=== PATIENT | male | born 1950 | race Caucasian/White ===

== ENCOUNTER → 2019-12-03 09:39 | Outpatient (BNVA) | payer MEDICARE, OTHER, SELFPAY | PROVIDERS: Family Provider Nurse Practitioner Family; PCP Nurse Practitioner Family; Visit Provider Nurse Practitioner | DX: G89.29 Other chronic pain (principal); M51.17 Intervertebral disc disorders with radiculopathy, lumbosacral region; M43.24 Fusion of spine, thoracic region; M48.04 Spinal stenosis, thoracic region; M96.1 Postlaminectomy syndrome, not elsewhere classified; G56.03 Carpal tunnel syndrome, bilateral upper limbs; Z79.891 Long term (current) use of opiate analgesic | CPT/HCPCS: 99214 ==

== ENCOUNTER → 2020-01-22 14:11 | Outpatient (BNVA) | payer MEDICARE, OTHER, SELFPAY | PROVIDERS: Family Provider Nurse Practitioner Family; PCP Nurse Practitioner Family; Visit Provider Nurse Practitioner Family | DX: M25.521 Pain in right elbow (principal); M25.421 Effusion, right elbow | CPT/HCPCS: 73080 ==

== ENCOUNTER 2020-01-30 12:28 | Outpatient (CLI) | payer MEDICARE, OTHER, SELFPAY ==
--- NOTE | 2020-01-30 12:41 | XR_ITS ---
WS: [id number] XR lumbar spine f/e only [id number] REASON FOR EXAM: back pain FINDINGS: Lateral views of the lumbar spine showed posterior instrumentation [id number]-L5-S1 extends d own into the sacroiliac joints and the sacrum. At the L1-2 level there is degenerate disc changes with mild retrolisthesis. A mild compression defor mity of L1 is seen. Flexion-extension views show no motion are limited motion flexion and extension. XR/XR lumbar spine f/e only [id number] IMPRESSION: Limited flexion-extension. Fusion L2 through the sacrum. Posteriorly Degenerated disc changes and retrolisthesis with a complete mild compression ch anges at L1.
== END 2020-01-30 12:29 | disposition home or self-care (01) ==
LOC: RAD 12:36
PROVIDERS: Family Provider Nurse Practitioner Family; PCP Nurse Practitioner Family; Visit Provider Nurse Practitioner Family
DX: M51.36 Other intervertebral disc degeneration, lumbar region (principal)
CPT/HCPCS: 72120

== ENCOUNTER → 2020-02-07 13:00 | Outpatient (BNVA) | payer MEDICARE, OTHER, SELFPAY | PROVIDERS: Family Provider Nurse Practitioner Family; PCP Nurse Practitioner Family; Visit Provider Anesthesiology | DX: G89.29 Other chronic pain (principal); M48.04 Spinal stenosis, thoracic region; M43.24 Fusion of spine, thoracic region; M96.1 Postlaminectomy syndrome, not elsewhere classified; M54.42 Lumbago with sciatica, left side; Z79.891 Long term (current) use of opiate analgesic | CPT/HCPCS: 99214 ==

== ENCOUNTER 2020-02-14 15:05 | Outpatient (CLI) | payer MEDICARE, OTHER, SELFPAY ==
--- NOTE | 2020-02-14 15:30 | CT_ITS ---
WS: [id number] CT of the lumbar spine, additional two-dimensional coronal and sagittal imaging was obtained. 02/14/20 Clinical Data: Low back pain, injury Comparison: CT lumbar spine, 07/23/2019. DLP: 2035.[address] scans at [facility] use at least one of these dose optimization techniques: automat ed exposure control; mA and/or kV adjustment per patient size (includes targeted exams where dose is matched to clinical indication); or iterative reconstruction. Findings: There is been no change from the previous study. The patient has bilateral pedicle screws a t L2, L3, L5 and oblique screws from S1 obliquely into the both gerhard. There is a unilateral pedicle s crew on the left at L4. These pedicle screws are connected with rods. No change is seen. There is deg enerative disc disease at L1-L2, L2-L3 and L3-L4. There is complete fusion at L4-L5. L3-L4 and L4-L5 laminectomies have been performed. Facet joint arthritis is present from L2-3 through L5-S1. No compr ession fractures are seen. There is posterior osteoarthritic spurring at L1-L2 unchanged. Left renal cyst is again noted. T12-L1: No canal stenosis, disc bulge or foraminal narrowing is seen. L1-L2: There is minimal central canal stenosis with bilateral foraminal narrowing. L2-L3: There is minimal disc bulging with mild central canal stenosis but no foraminal stenosis. L3-L4: The minimal anterolisthesis of L3 on L4 is noted. There is facet joint arthritis but no spinal canal or foraminal narrowing. L4-L5: Bilateral foraminal stenosis but no canal stenosis. L5-S1: Right foraminal stenosis but no left foraminal stenosis. CT/CT lumbar spine wo con* [id number] Impression: 1. Posterior lumbar fusion unchanged. 2. Multiple levels of canal and foraminal stenosis unchanged. 3. L3-4 and L4-5 laminectomies unchanged.
== END 2020-02-14 15:06 | disposition home or self-care (01) ==
LOC: RADWPI 15:10
PROVIDERS: Family Provider Nurse Practitioner Family; PCP Nurse Practitioner Family; Visit Provider Licensed Practical Nurse
DX: Z98.1 Arthrodesis status (principal); M54.5 Low back pain; M48.061 Spinal stenosis, lumbar region without neurogenic claudication; M96.1 Postlaminectomy syndrome, not elsewhere classified
CPT/HCPCS: 72131

== ENCOUNTER → 2020-03-05 09:45 | Outpatient (BNVA) | payer MEDICARE, OTHER, SELFPAY | PROVIDERS: Family Provider Nurse Practitioner Family; PCP Nurse Practitioner Family; Referring Provider Specialist; Visit Provider Psychiatry & Neurology Neurology | DX: G89.29 Other chronic pain (principal); M54.41 Lumbago with sciatica, right side; M54.42 Lumbago with sciatica, left side; M48.04 Spinal stenosis, thoracic region; M43.24 Fusion of spine, thoracic region; M96.1 Postlaminectomy syndrome, not elsewhere classified; Z79.891 Long term (current) use of opiate analgesic | CPT/HCPCS: 95885; 95910; 99214 ==

== ENCOUNTER → 2020-03-31 12:15 | Outpatient (BNVA) | payer MEDICARE, OTHER, SELFPAY | PROVIDERS: Family Provider Nurse Practitioner Family; PCP Nurse Practitioner Family; Visit Provider Nurse Practitioner Family | DX: I10 Essential (primary) hypertension (principal); E78.2 Mixed hyperlipidemia; R53.83 Other fatigue; Z79.899 Other long term (current) drug therapy; E55.9 Vitamin D deficiency, unspecified; Z12.5 Encounter for screening for malignant neoplasm of prostate | CPT/HCPCS: 80053; 80061; 81001; 82306; 83036; 84443; 85025; G0103 ==

== ENCOUNTER → 2020-04-06 10:22 | Outpatient (BNVA) | payer MEDICARE, OTHER, SELFPAY | PROVIDERS: Family Provider Nurse Practitioner Family; PCP Nurse Practitioner Family; Visit Provider Nurse Practitioner Family | DX: N39.9 Disorder of urinary system, unspecified (principal) | CPT/HCPCS: 81001 ==

== ENCOUNTER 2020-04-09 11:56 | Day surgery (SDC) | payer MEDICARE, OTHER, SELFPAY ==
[2020-04-09 12:13] VITALS: BP 139/93; PULSE 66; RESP 18; TEMP 36.4; O2SAT 96
[2020-04-09 12:37] VITALS: BMI 31.1
--- NOTE | 2020-04-09 12:50 | W.PM.OPSUD ---
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
--- NOTE | 2020-04-09 13:14 | P.ANESASSM_ITS ---
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 Proposed Procedure: Operation Date: 04/09/20 13:40 Proposed Procedures p Open Left Median Nerve Release 39088 G56.03(Left) - Craig Thomas MD Last intake: Intake Last Liquid Date 04/09/20 Last Liquid Time 06:00 Last Solid Date 04/08/20 Last Solid Time 09:30 Social: Social History: No alcohol and No tobacco Exam: Pre-Anes Outpt Exam: alert, oriented x 3, clear to auscultation bilaterally and regular rate & rhythm Airway: Submandibular: WNL Cervical ROM: WNL MP: 2 Dentition: Other (very poor) History/ROS: No significant history except as noted Pulmonary: Pulmonary: Sleep apnea CV/HEM: CV/HEM: HTN : : None reported Hepatic: Hepatic: None reported GI: GI: GERD Metabolic: Metabolic: None reported Musc/skel: Musc/skel: Lower Back Pain and OA/DJD Neuropsych: Neuropsych: Anxiety, Depression and Neuropathy Anesthetic Plan: ASA status: 3 Anesthesia: Anesthesia Evaluation and General Risk of > 500 ml blood loss (7ml/kg in children): No PFSH Anesthesia PFSH: Medical History ADHD (attention deficit hyperactivity disorder), combined type Auditory processing disorder Bilateral carpal tunnel syndrome 07/17/2019 NCS BUE Chronic bilateral low back pain with bilateral sciatica Chronic narcotic use Chronic thoracic spine pain Encounter for long-term opiate analgesic use Essential hypertension Failed back syndrome, lumbosacral Fusion of spine, thoracic region Low back pain Mixed hyperlipidemia Obstructive sleep apnea on CPAP Postlaminectomy syndrome of lumbosacral region Pseudarthrosis following spinal fusion PTSD (post-traumatic stress disorder) Thoracic spinal stenosis Unspecified dementia without behavioral disturbance Vitamin D deficiency Surgical History History of facial surgery S/P knee surgery S/P spinal surgery 2009 Dr. Jose Roach [place], [place]: Multilevel cervical laminectomy/fusion/fixation. Dr. Jose Roach [place], [place] Patient reports C2-C3, C3-C4, C4-C5 Laminectomy/fusion/fixation 2013 Dr. Jose Mejía [place], [place] T1-T4 laminectomy/fusion/fixation 2015 Dr. Jose Roach [place], [place]. L3-L4, L4-L5, L5-S1, S1-S2 posterior laminectomy/fusion/fixation and bilateral iliac bones 06/06/19 Dr Thomas irrigation and debridement of posterior thoracic surgical wound dehiscence related to a previous thoracic spinal cord stimulator placement 07/24/2019 Dr. Gricelda Thomas: Thoracic laminotomies with removal of intraspinal, epidural paddle electrode arrays. Removal of subcutaneous programmable pulse generator. Back Surgery Attributes: Inpatient, Post-op complications, Bilateral. Comments: 2013: L3-4 and maybe one other. 2016: L2-3, L3-4, L4-5, and L5-S1 and bilateral sacroiliac fusion. Cervical fusion revision, Dr Chidi Roach, [place], [place], 2010 Dr Thomas 01/17/19 Thoracic laminotomy with placement of intraspinal, epidural paddle electrode arrays and placement of subcutaneous programmable pulse generator. Neck Surgery *Promoted* Attributes: Date: 2009, Inpatient, Post-op complications, Bilateral. Comments: 2009: C2-3, C3-4 and C4-5 discectomy and fusion 2011: revision of fusion due to failure at C3-4 and C4-5 2012: Fusion from C2 to T4. SCS Removal 2019 Spinal Cord Stimulator Trial -Dr. Clemons 11/02/18 11/02/2018 - 11/06/2018 100% symptom benefit Status post laminectomy with spinal fusion Family History Mother Diabetes Social History Smoking and tobacco status: never smoked Alcohol intake: former Household members: significant other Marital status: Single Current occupational status: retired History of recent travel: No Data Anesthesia Cardiac Studies: No Data to Display
--- NOTE | 2020-04-09 13:27 | P.OP_ITS ---
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 Surgeon: Craig Thomas Estimated blood loss (mL): 5 Complications: None Post-op Plan: Home per Ambulatory Surgery protocol. 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
[2020-04-09] MEDS: sodium chloride 0.9% 1,000 ML 30 ML IV (13:30)
[2020-04-09] MEDS: neomycin-poly-bacitracin oint 28 gm 1 APPLIC TOPICAL (14:08)
[2020-04-09 14:33] VITALS: BP 142/93; PULSE 67; RESP 18; TEMP 36.1; O2SAT 98
[2020-04-09 15:15] VITALS: BP 170/94; PULSE 56; RESP 18; O2SAT 99
[2020-04-09 15:28] VITALS: BP 117/93; PULSE 58; RESP 18; O2SAT 99
--- NOTE | 2020-04-09 18:16 | PM.OP ---
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 Post-op diagnosis: same Procedure Done: Open release of the median nerve at the left wrist. Implants: None. Specimens removed/disposition: None. Pathology: none sent Surgeon: Craig Thomas Anesthesia: MAC Estimated blood loss (mL): 5 IV fluids (mL): 100 Complications: None. Condition: stable Disposition: same day Brief History: The patient is a 69-year-old male with symptomatic, electrodiagnostically confirmed, severe median nerve entrapment at the wrists. Conservative management, including wrist splinting, failed to provide adequate lasting symptom relief. After review of the diagnostic and treatment options with the risks/potential benefits/rationale for each, the patient requested to proceed with open release of the median nerve at the left wrist. Procedure: After routine preoperative evaluation and informed consent were obtained, the patient was taken to the Operating Room and positioned supine on the operating table. Anesthesia personnel monitored the patient, and maintained intravenous sedation. The left upper extremity was extended on an arm board. The proposed skin incision was marked with a sterile skin marker, beginning near the wrist crease and extending distally along a palmar crease to the base of the thumb. The left upper extremity was scrubbed with Betadine and prepped with DuraPrep from the fingertips to the axilla. A sterile stockinette was placed over the left upper extremity. The patient was draped with sterile towels and drapes. An opening was fashioned in the sterile stockinette over the palmar aspect of the left hand. Ioban surgical barrier was applied. The proposed incision site was infiltrated with 1% Xylocaine with Epinephrine. A skin incision was made with a sharp knife and carried down into the subcutaneous tissues. The markedly thickened transverse carpal ligament was identified and divided over the course of the median nerve in the palm. The nerve was directly visualized as the ligament was divided. Decompression was extended distally until the palmar fat pad was encountered. Proximally, the decompression was extended above the wrist crease utilizing fine Metzenbaum scissors. Decompression was verified to be adequate for a distance of greater than 2 centimeters proximal to the wrist crease. Focal epineural adhesions were identified distally. Limited epineurolysis was performed at that site. At the completion of the decompression, there was no evidence of residual impingement or tethering of the median nerve at the surgical site. The wound was copiously irrigated with sterile saline and antibiotic irrigation. Hemostasis was ensured with the bipolar electrocautery. Wound closure was performed as a single layer utilizing 4-0 Nylon in a simple interrupted fashion. Antibiotic ointment was placed along the incision line. A bulky hand dressing was fashioned utilizing Kerlix fluffs, a Kerlix wrap, and an BARBRA/elastic bandage. The patient was transferred onto the transport cart and returned to the Ambulatory Surgery Area for discharge home, as per the Ambulatory Surgery protocol. The patient tolerated the procedure well. All sponge, needle and instrument counts were correct at the completion of the procedure.
== END 2020-04-09 16:15 | disposition home or self-care (01) ==
PROVIDERS: PCP Nurse Practitioner Family; Visit Provider Specialist
PROC: (CPT 64721; principal; 2020-04-09 13:30)
DX: G56.02 Carpal tunnel syndrome, left upper limb (principal); I10 Essential (primary) hypertension; K21.9 Gastro-esophageal reflux disease without esophagitis; M19.90 Unspecified osteoarthritis, unspecified site; G47.33 Obstructive sleep apnea (adult) (pediatric); Z98.1 Arthrodesis status; Z87.891 Personal history of nicotine dependence; E78.2 Mixed hyperlipidemia; F03.90 Unspecified dementia, unspecified severity, without behavioral disturbance, psychotic disturbance, mood disturbance, and anxiety
CPT/HCPCS: 64721; 12345; J0690; J2001; J2704; J3010; J3490; J7030

== ENCOUNTER → 2020-05-01 09:50 | Outpatient (BNVA) | payer MEDICARE, OTHER, SELFPAY | PROVIDERS: PCP Nurse Practitioner Family; Visit Provider Anesthesiology | DX: G89.29 Other chronic pain (principal); M54.41 Lumbago with sciatica, right side; M54.42 Lumbago with sciatica, left side; M48.04 Spinal stenosis, thoracic region; M43.24 Fusion of spine, thoracic region; M96.1 Postlaminectomy syndrome, not elsewhere classified; Z79.891 Long term (current) use of opiate analgesic | CPT/HCPCS: 99214 ==

== ENCOUNTER → 2020-07-09 16:12 | Outpatient (BNVA) | payer MEDICARE, OTHER, SELFPAY | PROVIDERS: PCP Nurse Practitioner Family; Visit Provider Nurse Practitioner Family | DX: E55.9 Vitamin D deficiency, unspecified (principal); I10 Essential (primary) hypertension; E78.2 Mixed hyperlipidemia; Z79.899 Other long term (current) drug therapy | CPT/HCPCS: 36415; 80053; 80061; 81003; 82306; 83036; 84443; 85025 ==

== ENCOUNTER → 2020-07-14 11:35 | Outpatient (BNVA) | payer MEDICARE, OTHER, SELFPAY | PROVIDERS: PCP Nurse Practitioner Family; Visit Provider Nurse Practitioner Family | DX: I10 Essential (primary) hypertension (principal) | CPT/HCPCS: 80053; 81003 ==

== ENCOUNTER 2020-08-05 08:44 | Outpatient (CLI) | payer MEDICARE, OTHER, SELFPAY ==
[2020-08-05 08:56] VITALS: BMI 32.6
--- NOTE | 2020-08-05 08:57 | ECG_ITS ---
[facility] Test Date: 2020-08-05 Pat Name: Billy Bishop Department: Room: Gender: Male Manager Of Procurement: : 1950 Requested By: Nata Sloan Order Number: [id number] Alcala MD: Nata Sloan M.D. Interpretive Statements NAME OF STUDY: EXERCISE SESTAMIBI STRESS TEST INDICATION: Chest Pressure, fatigue Baseline blood pressure of 161/88 mm Hg, heart rate 67 beats per minute and oxygen saturation 96%. EKG showed normal sinus rhythm, normal axis with with possible old septal infarct. The patient exercised for 6 minutes on a standard Tomer protocol. Patient attained a maximum heart rate of 133 beats per minute(88 % of the maximum predicted heart rate) with a blood pressure at the peak exercise of 153/91 mm Hg. The EKG at the peak exercise revealed sinus tachycardia with no significant ST-T wave changes. Patient did not have any significant arrhythmis with the exercise. This study was terminated due to chest pain and exertional fatigue. During the recovery phase, there were no new changes. During recovery patients blood pressure reji to 244/115 mmHg. Blood pressure at the end of the recovery phase was 152/97 mm Hg with a heart rate of 77 beats per minute and oxygen saturation 97%. Isolated PVCs noted in recovery. CONCLUSION: 1. Normal EKG response to treadmill exercise 2. No exercise-induced chest pain or cardiac arrhythmia 3. Fair exercise tolerance, attained a maximum of 7 METs. Maximum VO2 of 24.5 mL/kg/min. 4. Baseline hypertension with hypertensive response to exercise. 5. Perfusion scan will be documented separately. Results to RICK Davis Electronically Signed On 08-06-2020 12:52:47 CDT by Nata Sloan M.D. [id number]
--- NOTE | 2020-08-05 08:59 | NMCV_ITS ---
NM sheila perf SPECT r/s* [id number] Billy Bishop Age: 70 Gender: M : 1950 Exam Date: 08/05/2020 10:12 Ordering Phys: Nata Sloan MD ([email or web address]) Technologist: ELVA Nolasco Exam Location: [facility] Indications: Chest pain STRESS TEST Please [facility] IMAGE PROTOCOL Rest/Stress 1 Exercise Day Radiopharmaceutical Dose (mCi) Administration Site Administered by Rest: Tc-99m 10.7 IV ELVA Nolasco Sestamibi Stress:Tc-99m 32.3 IV ELVA Nolasco Sestamimauro Rest: 05-Aug-2020 60 Discovery 630 Stress: 05-Aug-2020 45 Discovery 630 Radiopharmaceutical was injected at 85 % maximum heart rate. Images obtained in supine and prone position. SPECT RESULTS Technical Quality: Good Raw Data Analysis: Normal Image Corrections: Patient motion artifact - motion correction applied to prone images. Summed Stress Score: 1 Summed Rest Score: 7 Summed Difference Score: 0 PERFUSION FINDINGS Medium sized perfusion abnormality of mild to moderate severity of entire inferior and mid to apical inferolateral wall on rest images with improved tracer uptake on stress images. This is suggestive of attenuation artifact. FUNCTIONAL RESULTS (calculated via Gated SPECT) Stress Image LV EF (%): 52 Stress EDV (mL):89 TID: 0.85 Stress ESV (mL):43 FUNCTIONAL FINDINGS: The left ventricle is normal in size. Transient Ischemia Dilatation of 0.85. There is normal left ventricular systolic function. The left ventricular ejection fraction is normal with a value of 52%. There is normal left ventricular wall thickening. Normal end-diastolic and end-systolic volumes. IMPRESSIONS 1. Medium sized paradoxical perfusion abnormality of entire inferior and mid to apical inferolateral wall is suggestive of attenuation artifact. 2. Overall left ventricular systolic function is low normal without regional wall motion abnormalities. 3. The left ventricular ejection fraction is normal with a value of 52%. 4. No coronary ischemia based on the study Nata Sloan MD (Electronically Signed) Final Date: 06 August 2020 13:00 S
[2020-08-05 11:19] VITALS: BP 152/97; PULSE 78
== END 2020-08-05 08:45 | disposition home or self-care (01) ==
LOC: CDL 08:45
PROVIDERS: PCP Nurse Practitioner Family; Visit Provider Internal Medicine Cardiovascular Disease
DX: R07.9 Chest pain, unspecified (principal)
CPT/HCPCS: 78452; 93017; A9500

== ENCOUNTER → 2020-08-31 13:40 | Outpatient (BNVA) | payer MEDICARE, OTHER, SELFPAY | PROVIDERS: PCP Nurse Practitioner Family; Visit Provider Registered Nurse | DX: Z03.89 Encounter for observation for other suspected diseases and conditions ruled out (principal) | CPT/HCPCS: 82607; 84403 ==

== ENCOUNTER → 2020-11-13 12:00 | Outpatient (BNVA) | payer MEDICARE, OTHER, SELFPAY | PROVIDERS: PCP Nurse Practitioner Family; Visit Provider Nurse Practitioner Family | DX: M19.011 Primary osteoarthritis, right shoulder (principal); M17.12 Unilateral primary osteoarthritis, left knee; R25.2 Cramp and spasm | CPT/HCPCS: 73030; 73562 ==

== ENCOUNTER → 2021-01-25 11:44 | Outpatient (BNVA) | payer MEDICARE, SELFPAY | PROVIDERS: PCP Nurse Practitioner Family; Visit Provider Specialist | DX: M19.011 Primary osteoarthritis, right shoulder (principal) | CPT/HCPCS: 73030 ==

== ENCOUNTER → 2021-02-11 10:45 | Outpatient (BNVA) | payer MEDICARE, SELFPAY | PROVIDERS: PCP Nurse Practitioner Family; Visit Provider Specialist | DX: M19.011 Primary osteoarthritis, right shoulder (principal); M17.12 Unilateral primary osteoarthritis, left knee | CPT/HCPCS: 73560; 73565 ==

== ENCOUNTER 2021-03-03 10:27 | Outpatient (CLI) | payer MEDICARE, SELFPAY ==
--- NOTE | 2021-03-03 11:00 | USCV_ITS ---
Billy Bishop Age: 70 Gender: M : 1950 Exam Date: 03/03/2021 10:49 Ordering Phys: Ferdinand Middleton MD Technologist: Javad Faye [place] [facility] [place]: DIZZINESS, GIDDINESS Risk Factors: Previous Vascular Surgery: Right Brachial BP: / Left Brachial BP: / Right Left Velocity (cm/s) Spectral Plaque Velocity (cm/s) Spectral Plaque Syst/Diast Broadening Syst/Diast Broadening 87.00/ 17.90 Prox CCA 85.40 / 19.40 75.40/ 22.50 Mid CCA 77.70 / 14.80 49.70/ 10.90 Distal CCA 66.00 / 17.10 49.70/ 17.60 Prox ICA 40.60 / 16.30 51.80/ 22.40 Mid ICA 48.10 / 19.00 45.30/ 18.10 Distal ICA 58.20 / 23.70 69.10 ECA 75.20 0.69 ICA/CCA 0.75 Antegrade Vertebral Antegrade 85.40/ 24.90 cm/s 40.40/ 12.40 cm/s Tri Subclavian Tri 82.30 105.8 0 CONCLUSIONS Right ICA stenosis <50%. Mild atheromatous plaque right carotid bulb/ICA. Left ICA stenosis <50%. Mild atheromatous plaque left carotid bulb/ICA. Normal antegrade Doppler flow noted in the right vertebral artery. Normal antegrade Doppler flow noted in the left vertebral artery. Rakesh Novak MD (Electronically Signed) Final Date: 04 March 2021 10:23 S
--- NOTE | 2021-03-03 13:00 | MR_ITS ---
WS: [id number] MRI HEAD WITHOUT CONTRAST TECHNIQUE: Sagittal T1, T2 axial, T2 axial FLAIR, axial and coronal T1 images, axial susceptibility w eighted imaging, axial diffusion weighted images, and coronal T2 images were obtained. CLINICAL INFORMATION: G11.9 - Hereditary ataxia, unspecified COMPARISON: CTA 019 FINDINGS: No evidence of restricted diffusion to suggest acute ischemia. Ventricular system and basal cisterns are patent. Mild small vessel changes. Mild to moderate parenchymal volume loss. Normal posterior fos sa. Normal vascular flow voids at the skull base. No extra-axial fluid collections. No evidence of ma ss or mass effect. Mild mucosal thickening in the paranasal sinuses. Mild mucosal thickening left mastoid tip. No hemosi alina on susceptibly weighted images. Normal optic chiasm and pituitary infundibulum. Normal cavernou s sinuses and Meckel's cave. Mild symmetric atrophy temporal lobes and hippocampal formations. No asy mmetric hippocampal atrophy. MR/MR head wo con* [id number] IMPRESSION: 1. No evidence of restricted diffusion to suggest acute ischemia. 2. Mild small vessel changes. Mild to moderate parenchymal volume loss. 3. No hemosiderin on susceptibly weighted images. 4. Mild symmetric atrophy temporal lobes and hippocampal formations. 5. No other significant findings.
== END 2021-03-03 10:28 | disposition home or self-care (01) ==
LOC: RAD 10:28
PROVIDERS: PCP Nurse Practitioner Family; Visit Provider Family Medicine
DX: G11.9 Hereditary ataxia, unspecified (principal); R42 Dizziness and giddiness; I65.23 Occlusion and stenosis of bilateral carotid arteries; G31.9 Degenerative disease of nervous system, unspecified
CPT/HCPCS: 70551; 80053; 80061; 82607; 82746; 83036; 84443; 85025; 85651; 86592; 93880

== ENCOUNTER → 2021-04-29 12:05 | Outpatient (BNVA) | payer MEDICARE, SELFPAY | PROVIDERS: PCP Nurse Practitioner Family; Visit Provider Nurse Practitioner Family | DX: J22 Unspecified acute lower respiratory infection (principal); R06.02 Shortness of breath; Z98.1 Arthrodesis status; I70.90 Unspecified atherosclerosis | CPT/HCPCS: 71046 ==

== ENCOUNTER → 2021-05-24 13:45 | Outpatient (BNVA) | payer MEDICARE, SELFPAY | PROVIDERS: PCP Nurse Practitioner Family; Visit Provider Specialist | DX: G43.711 Chronic migraine without aura, intractable, with status migrainosus (principal); M54.12 Radiculopathy, cervical region; Z71.89 Other specified counseling | CPT/HCPCS: 99204 ==

== ENCOUNTER 2021-06-15 06:00 | Outpatient (RCR) | payer MEDICARE, SELFPAY | END 2021-06-26 23:59 | disposition home or self-care (01) | LOC: SPT 06:00 | PROVIDERS: PCP Nurse Practitioner Family; Referring Provider Specialist; Visit Provider Specialist | DX: M54.2 Cervicalgia (principal) | CPT/HCPCS: 97110; 97162 ==

== ENCOUNTER 2021-06-27 06:00 | Outpatient (RCR) | payer MEDICARE, SELFPAY | END 2021-07-27 23:59 | disposition home or self-care (01) | LOC: SPT 06:00 | PROVIDERS: PCP Nurse Practitioner Family; Referring Provider Specialist; Visit Provider Specialist | DX: M54.2 Cervicalgia (principal) | CPT/HCPCS: 97110 ==

== ENCOUNTER → 2021-08-31 11:00 | Outpatient (BNVA) | payer MEDICARE, SELFPAY | PROVIDERS: PCP Nurse Practitioner Family; Visit Provider Nurse Practitioner Family | DX: Z00.00 Encounter for general adult medical examination without abnormal findings (principal); E55.9 Vitamin D deficiency, unspecified; E78.2 Mixed hyperlipidemia; I10 Essential (primary) hypertension; Z79.899 Other long term (current) drug therapy | CPT/HCPCS: 80053; 80061; 81003; 82306; 83036; 84443; 85025; 87086 ==

== ENCOUNTER → 2021-09-01 13:33 | Outpatient (BNVA) | payer MEDICARE, SELFPAY | PROVIDERS: PCP Nurse Practitioner Family; Visit Provider Nurse Practitioner Family | DX: Z12.5 Encounter for screening for malignant neoplasm of prostate (principal) | CPT/HCPCS: G0103 ==

== ENCOUNTER → 2021-10-05 13:11 | Outpatient (BNVA) | payer MEDICARE, SELFPAY | PROVIDERS: PCP Nurse Practitioner Family; Visit Provider Specialist | DX: G31.84 Mild cognitive impairment of uncertain or unknown etiology (principal); F60.9 Personality disorder, unspecified; Z71.85 Encounter for immunization safety counseling | CPT/HCPCS: 96116; 99214; 99215 ==

== ENCOUNTER → 2023-01-31 10:33 | Outpatient (BNVA) | payer MEDICARE, SELFPAY | PROVIDERS: PCP Nurse Practitioner; Referring Provider Nurse Practitioner Family; Visit Provider Physician Assistant | DX: G57.11 Meralgia paresthetica, right lower limb (principal); Z98.1 Arthrodesis status | CPT/HCPCS: 72110; 99203 ==

== ENCOUNTER 2023-02-22 14:50 | Outpatient (CLI) | payer MEDICARE, SELFPAY ==
--- NOTE | 2023-02-22 15:00 | CT_ITS ---
WS: [id number] CT LUMBAR SPINE TECHNIQUE: Noncontrast CT of the lumbar spine with coronal and sagittal reformatted images. CLINICAL INFORMATION: COMPARISON: 2019 DLP: 1302.[address] scans at [facility] use at least one of these dose optimization techniques: automated e xposure control; mA and/or kV adjustment per patient size (includes targeted exams where dose is matc hed to clinical indication); or iterative reconstruction. FINDINGS: Osteopenia. Demineralization has progressed compared to previous. Mild lumbar curve. No acute sujey adelina. Advanced chronic disc desiccation L1-L2 with slight retrolisthesis with endplate sclerosis and space narrowing progressed. Pedicle screw fixation L2-S1 with interconnecting rods. Hardware appears intact. No significant screw loosening. Bilateral iliac screw fixation. Nondisplaced fractures of the RIGHT iliac screw. Laminectomy defects L3-L5. L1-L2: Disc osteophyte complex with moderate central canal stenosis. Impingement subarticular recess bilaterally. Moderate facet arthropathy. Moderate bilateral LEFT greater than RIGHT foraminal narrowi ng. L2-L3: Disc osteophyte complex with endplate ridging. Mild to moderate central canal stenosis. Imping ement LEFT subarticular recess. Foramen are patent. Moderate facet arthropathy. L3-L4: Slight anterolisthesis L3 on L4. Spinal canal and foramen are patent. Laminectomy defects. L4-L5: Interbody bony fusion. Mild LEFT and no significant RIGHT foraminal narrowing. Spinal canal is patent. Advanced facet arthropathy. L5-S1: Disc osteophytic ridging. Spinal canal and foramen are patent. Visualized pelvic bony structures: Normal. Paravertebral soft tissues: Normal. CT/CT lumbar spine wo con* [id number] IMPRESSION: 1. Nondisplaced fractures of the RIGHT iliac screw. 2. Hardware otherwise appears intact. 3. Disc space narrowing with retrolisthesis L1-L2 has progressed from previous . Moderate central canal stenosis has progressed with impingement on the kassandra sing L2 nerve roots. Moderate LEFT greater than RIGHT bony foraminal narrowing at this level. 4. Mild to moderate central canal stenosis L2-L3 with impingement on the LEFT subarticular recess appears stable. 5. Mild LEFT L4-L5 foraminal narrowing. 6. Spinal canal is patent L3-L5.
== END 2023-02-22 14:51 | disposition home or self-care (01) ==
LOC: RAD 14:51
PROVIDERS: PCP Nurse Practitioner; Visit Provider Physician Assistant
DX: M48.061 Spinal stenosis, lumbar region without neurogenic claudication (principal); M25.78 Osteophyte, vertebrae
CPT/HCPCS: 72131

== ENCOUNTER → 2023-04-03 08:44 | Outpatient (BNVA) | payer MEDICARE, SELFPAY | PROVIDERS: PCP Nurse Practitioner; Visit Provider Specialist | DX: G62.89 Other specified polyneuropathies (principal) | CPT/HCPCS: 95908; 95909 ==

== ENCOUNTER → 2023-04-25 10:37 | Outpatient (BNVA) | payer MEDICARE, SELFPAY | PROVIDERS: PCP Nurse Practitioner; Visit Provider Physician Assistant | DX: M54.2 Cervicalgia (principal) | CPT/HCPCS: 72050; 99213 ==

== ENCOUNTER → 2023-05-04 10:03 | Outpatient (BNVA) | payer MEDICARE, SELFPAY | PROVIDERS: PCP Nurse Practitioner; Visit Provider Registered Nurse | DX: R06.02 Shortness of breath (principal) | CPT/HCPCS: 80053; 83880; 85025 ==

== ENCOUNTER → 2023-05-10 08:38 | Outpatient (BNVA) | payer MEDICARE, SELFPAY | PROVIDERS: PCP Nurse Practitioner; Visit Provider Orthopaedic Surgery | DX: M17.12 Unilateral primary osteoarthritis, left knee (principal) | CPT/HCPCS: 20610; 73560; 73565; 99214; J0702; J3490 ==

== ENCOUNTER → 2023-06-29 11:13 | Outpatient (BNVA) | payer MEDICARE, SELFPAY | PROVIDERS: PCP Registered Nurse; Visit Provider Registered Nurse | DX: E11.9 Type 2 diabetes mellitus without complications (principal) | CPT/HCPCS: 80053; 83036 ==

== ENCOUNTER 2023-07-26 13:59 | Outpatient (CLI) | payer MEDICARE, SELFPAY ==
[2023-07-26 14:16] VITALS: PULSE 79; RESP 18; O2SAT 98
[2023-07-26] MEDS: albuterol 2.5 mg/3 mL Neb INHALATION (14:19)
[2023-07-26 14:21] VITALS: PULSE 83
== END 2023-07-26 14:00 | disposition home or self-care (01) ==
LOC: RT 14:03
PROVIDERS: PCP Registered Nurse; Visit Provider Registered Nurse
DX: R06.09 Other forms of dyspnea (principal)
CPT/HCPCS: 94060; 94726; 94729

== ENCOUNTER 2023-09-29 14:48 | Outpatient (CLI) | payer MEDICARE, SELFPAY ==
--- NOTE | 2023-09-29 15:15 | USCV_ITS ---
Billy Bishop Age: 73 Gender: M : 1950 Exam Date: 09/29/2023 15:38 Ordering Phys: Sujata TuttleP CCO & PRESIDENT Technologist: VINCE Exam Location: [facility] [place] Indication: vertigo Risk Factors: Previous Vascular Surgery: Right Brachial BP: / Left Brachial BP: / Right Left Velocity (cm/s) Spectral Plaque Velocity (cm/s) Spectral Plaque Syst/Diast Broadening Syst/Diast Broadening 80.00/ 24.10 Prox CCA 72.80 / 19.80 52.80/ 17.90 Mid CCA 64.50 / 17.90 58.30/ 17.10 Distal CCA 38.70 / 10.00 37.20/ 12.80 Prox ICA 41.30 / 17.20 48.70/ 23.10 Mid ICA 51.10 / 17.20 66.20/ 27.80 Distal ICA 42.00 / 16.70 70.70 ECA 32.00 0.92 ICA/CCA 0.79 Antegrade Vertebral Antegrade 25.60/ 12.30 cm/s 35.30/ 13.80 cm/s Tri Subclavian Tri 61.40 86.10 CONCLUSIONS Right ICA stenosis <50%. Left ICA stenosis <50%. Intimal thickening in the common carotid arteries and internal carotid arteries bilaterally. Normal antegrade Doppler flow noted in the right vertebral artery. Normal antegrade Doppler flow noted in the left vertebral artery. Rakesh Novak MD (Electronically Signed) Final Date: 01 October 2023 10:17 S
== END 2023-09-29 14:49 | disposition home or self-care (01) ==
LOC: RAD 14:49
PROVIDERS: PCP Registered Nurse; Visit Provider Registered Nurse
DX: J98.4 Other disorders of lung (principal); I65.23 Occlusion and stenosis of bilateral carotid arteries
CPT/HCPCS: 93880

== ENCOUNTER → 2023-11-06 11:44 | Outpatient (BNVA) | payer MEDICARE, SELFPAY | PROVIDERS: PCP Registered Nurse; Visit Provider Registered Nurse | DX: E11.9 Type 2 diabetes mellitus without complications (principal) | CPT/HCPCS: 83036 ==

== ENCOUNTER → 2023-11-28 10:14 | Outpatient (BNVA) | payer MEDICARE, SELFPAY | PROVIDERS: PCP Registered Nurse; Visit Provider Student in an Organized Health Care Education/Training Program | DX: M17.12 Unilateral primary osteoarthritis, left knee; E11.9 Type 2 diabetes mellitus without complications; Z01.818 Encounter for other preprocedural examination; M25.562 Pain in left knee | CPT/HCPCS: 73560; 73565; 83036; 85025; 99204 ==

== ENCOUNTER → 2023-11-30 10:18 | Outpatient (BNVA) | payer MEDICARE, SELFPAY | PROVIDERS: PCP Registered Nurse; Visit Provider Student in an Organized Health Care Education/Training Program | DX: Z01.818 Encounter for other preprocedural examination (principal) | CPT/HCPCS: 80053; 81000 ==

== ENCOUNTER 2023-12-08 07:28 | Outpatient (CLI) | payer MEDICARE, SELFPAY ==
--- NOTE | 2023-12-08 08:00 | CT_ITS ---
WS: [id number] CT LEFT KNEE, NONCONTRAST MARBIN TECHNIQUE: Noncontrast CT of the LEFT knee to include the LEFT hip and ankle. CLINICAL INFORMATION: LEFT TKA-MARBIN COMPARISON: None. DLP: 872 mgy/cm All CT scans at [facility] use at least one of these dose optimization techniques: automated e xposure control; mA and/or kV adjustment per patient size (includes targeted exams where dose is matc hed to clinical indication); or iterative reconstruction. FINDINGS: Advanced tricompartment arthritis LEFT knee with [id number] articulation in the medial joint compar tment. Subchondral sclerosis. Hypertrophic patella. Hypertrophic changes along the joint line. Small suprapatellar effusion. Small lobulated popliteal cyst. Enlarged prostate with calcification and evidence of bladder outlet obstruction. Prostate measures 4. 6 cm. Recommend correlation PSA. Sigmoid diverticulosis. IMPRESSION: Images obtained for preoperative purposes.
== END 2023-12-08 07:29 | disposition home or self-care (01) ==
LOC: RAD 07:28
PROVIDERS: PCP Registered Nurse; Visit Provider Student in an Organized Health Care Education/Training Program
DX: M17.12 Unilateral primary osteoarthritis, left knee (principal); N40.0 Benign prostatic hyperplasia without lower urinary tract symptoms
CPT/HCPCS: 73700

== ENCOUNTER 2023-12-25 13:14 | Observation (INO) | payer MEDICARE, SELFPAY ==
[2023-12-25] VITALS (18 sets, daily range): BP systolic 91–165; BP diastolic 58–96; PULSE 82–111; RESP 11–20; TEMP 36.1–36.8; O2SAT 90–94; BMI 34.9
[2023-12-25] MEDS: lactated ringers 500 ML IV (10:15)
[2023-12-25] MEDS: sodium chloride 0.9% 1,000 ML 30 ML IV (10:27)
[2023-12-25] MEDS: ketorolac 30 mg/mL INJ IVP (10:27)
[2023-12-25] MEDS: scopolamine 1.5 Patch 1 PATCH TRANSDERMA (10:29)
[2023-12-25] MEDS: acetaminophen 1,000 MG/100 ML PIGGYBACK 400 MG IV ×2 (10:30→21:50)
[2023-12-25 10:36] LABS: Basophils # 0.1 10^3/uL (0.0-0.1); Basophils % 1.1 %; Eosinophils # 0.2 10^3/uL (0.0-0.8); Eosinophils % 3.1 %; Hematocrit 46.3 % (37-53); Lymphocytes # 1.7 10^3/uL (0.8-4.8); Mean Corpuscular Hemoglobin 30.4 pg (27-33); Mean Platelet Volume 8.8 fL (7.4-10.4); Monocytes # 0.5 10^3/uL (0.2-0.9); Neutrophils % 64.5 %; Nucleated Red Blood Cells % 0 %; Platelet Count 214 10^3/cmm (157-399); Red Blood Count 5.03 10^6/uL (3.85-5.65); Red Cell Distribution Width 13.2 % (12.1-15.1); White Blood Count 7.13 10^3/uL (3.29-11.43)
--- NOTE | 2023-12-25 10:36 | W.PM.OPSUD ---
Surgery/Procedure H&P Update DATE OF PROCEDURE: December 25, 2023 DATE H&P PERFORMED: 11/28/23 H&P UPDATE INFORMATION: I have reviewed H&P completed within last 30 days, I have examined patient prior to procedure and No changes to prior documentation PREOP DIAGNOSIS: Left knee degenerative joint disease PRIMARY INDICATION FOR PROCEDURE: Left knee degenerative joint disease PLANNED PROCEDURE: Operation Date: 12/25/23 11:10 Proposed Procedures p Left Ish Robot Total Knee Arthroplasty(Left) - Petey Sun DO
--- NOTE | 2023-12-25 10:37 | ECG_ITS ---
[facility] Test Date: 2023-12-25 Pat Name: Billy Bishop Department: Room: Gender: Male Med Care Manager: : 1950 Requested By: Yoana Bertrand Order Number: [id number] Cari MD: Juan Francisco Barbosa M.D. Measurements Intervals [place] Rate: 68 P: 18 WV: 160 QRS: 11 QRSD: 92 T: 61 QT: 388 QTc: 414 Interpretive Statements SINUS RHYTHM SEPTAL MYOCARDIAL INFARCTION , OF INDETERMINATE AGE [40+ ms Q WAVE IN V1/V2] Compared to ECG 11/04/2019 12:12:40 Myocardial infarct finding now present Sinus tachycardia no longer present Electronically Signed On 12-25-2023 19:34:32 COAL CHUTE WORKER by Juan Francisco Barbosa M.D. [id number]
--- NOTE | 2023-12-25 10:42 | XRR_ITS ---
PROCEDURE INFORMATION: Exam: XR Left Knee Exam date and time: 12/25/2023 1:53 PM Age: 73 years old Clinical indication: Device placement; Joint replacement hardware; Prior surgery; Surgery date: Post-operative (0-2 days); Surgery type: L tka, ; additional info: Post L tka, do in pacu TECHNIQUE: Imaging protocol: Radiologic exam of the left knee. Views: 1 or 2 views. COMPARISON: CT knee LT [facility] [id number] 12/08/2023 8:04 AM FINDINGS: Bones/joints: Interval left knee replacement in anatomic position with no complication evident. Soft tissues: Postoperative changes noted in the soft tissues. XR/XR knee LT 1-2V [id number] IMPRESSION: Interval left knee replacement.
--- NOTE | 2023-12-25 10:54 | P.ANESASSM_ITS ---
Pre-Anesthetic Assessment Height/Weight: Height 1.73 m Weight 104.326 kg Temp Pulse Resp BP Pulse Ox O2 Del Method 97 F L 82 18 148/87 94 Room Air 12/25/23 10:12/25/23 10:03 12/25/23 10:03 12/25/23 10:12/25/23 10:03 12/25/23 10:03 Preop Diagnosis: Left knee degenerative joint disease Operation Date: 12/25/23 11:10 Proposed Procedures p Left Ish Robot Total Knee Arthroplasty(Left) - Petey Sun DO Familial anesthetic complications: None Was Beta Debbie taken within 24 hours: N/A Was Clonidine taken within 24 hours: N/A Last intake: Intake Last Liquid Date 12/24/23 Last Liquid Time 20:00 Last Solid Date 12/24/23 Last Solid Time 18:00 Social No alcohol and No tobacco Exam alert, oriented x 3, clear to auscultation bilaterally and regular rate & rhythm Airway Mallampati: Class III Dentition: chipped and other (poor dentition) Pulmonary restrictive lung disease CV/HEM Hypertension achieves >4 mets without cardiac symptoms, but ability is limited by knee Metabolic Diabetes Mellitus Anesthetic Plan ASA status: 3 Anesthesia: Regional (specify below) Other: SPinal + Adductor Risk of > 500 ml blood loss (7ml/kg in children): No Medications/Allergies Home Medications Medication Instructions Recorded Confirmed Last Taken Type divalproex 250 mg tablet,delayed 250 mg PO TID #90 tabs 01/18/23 12/22/23 12/24/23 Rx release blood-glucose meter (OneTouch #1 ea 07/07/23 11/28/23 Unknown Rx Verio Flex Meter) lancets 30 gauge (Ultra Fine #200 ea 07/07/23 11/28/23 Unknown Rx Lancets) quetiapine 50 mg tablet 50 mg PO DAILY 09/14/23 12/22/23 12/04/23 History blood sugar diagnostic (OneTouch #100 strips 12/14/23 Unknown Rx Verio test strips) escitalopram oxalate 20 mg tablet 20 mg PO DAILY 12/22/23 12/22/23 12/24/23 History fluticasone fur. 100 mcg-umeclid 1 inh inhalation DAILY 12/22/23 12/22/23 12/25/23 History 62.5 mcg-vilant 25 mcg inhalat.powder (Trelegy Ellipta) lisinopril 20 mg tablet 20 mg PO DAILY 12/22/23 12/22/23 12/24/23 History rosuvastatin 5 mg tablet 5 mg PO DAILY 12/22/23 12/22/23 12/24/23 History tamsulosin 0.4 mg capsule 0.4 mg PO DAILY 12/22/23 12/22/23 12/24/23 History Allergies Allergy/AdvReac Type Severity Reaction Status Date / Time No Known Allergies Allergy Verified 12/06/23 09:15 Current Medications Generic Name Dose Route Start Last Admin Trade Name Freq PRN Reason Stop Dose Admin Sodium Chloride 1,000 mls @ 30 mls/hr 12/25/23 09:45 12/25/23 10:27 Sodium Chloride 0.9% IV 12/26/23 09:44 30 mls/hr .Q24H MAYRA Administration PFSH Anesthesia Medical History Osteoarthritis of left knee Type 2 diabetes mellitus Colon cancer screening Environmental and seasonal allergies Mixed hyperlipidemia Lower respiratory infection Poor dentition Rotator cuff arthropathy of right shoulder Cerebellar ataxia Generalized spasm Arthritis of right shoulder region Arthritis of knee, left Encounter for medication management Mixed hyperlipidemia Sleep apnea, unspecified Major depressive disorder, recurrent, moderate Chronic post-traumatic stress disorder 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 Vitamin D deficiency Encounter for long-term opiate analgesic use Postlaminectomy syndrome of lumbosacral region Chronic narcotic use Low back pain Chronic thoracic spine pain Failed back syndrome, lumbosacral Fusion of spine, thoracic region Essential hypertension Obstructive sleep apnea on CPAP Pseudarthrosis following spinal fusion ADHD (attention deficit hyperactivity disorder), combined type PTSD (post-traumatic stress disorder) Bilateral carpal tunnel syndrome 07/17/2019 [facility] BUE Chronic bilateral low back pain with bilateral sciatica Auditory processing disorder Unspecified dementia without behavioral disturbance Thoracic spinal stenosis Surgical History Status post laminectomy with spinal fusion S/P knee surgery S/P spinal surgery 2009 Dr. Jose Roach [place], [place]: Multilevel cervical laminectomy/fusion/fixation. Dr. Jose Roach [place], [place] Patient reports C2-C3, C3-C4, C4-C5 Laminectomy/fusion/fixation 2013 Dr. Jose Mejía [place], [place] T1-T4 laminectomy/fusion/fixation 2015 Dr. Jose Roach [place], [place]. L3-L4, L4-L5, L5-S1, S1-S2 posterior laminectomy/fusion/fixation and bilateral iliac bones 06/06/19 Dr Thomas irrigation and debridement of posterior thoracic surgical wound dehiscence related to a previous thoracic spinal cord stimulator placement 07/24/2019 Dr. Gricelda Thomas: Thoracic laminotomies with removal of intraspinal, epidural paddle electrode arrays. Removal of subcutaneous programmable pulse generator. Back Surgery Attributes: Inpatient, Post-op complications, Bilateral. Comments: 2013: L3-4 and maybe one other. 2015: L2-3, L3-4, L4-5, and L5-S1 and bilateral sacroiliac fusion. Cervical fusion revision, Dr Chidi Roach, [place], [place], 2010 Dr Thomas 01/17/19 Thoracic laminotomy with placement of intraspinal, epidural paddle electrode arrays and placement of subcutaneous programmable pulse generator. Neck Surgery *Promoted* Attributes: Date: 2009, Inpatient, Post-op complications, Bilateral. Comments: 2010: C2-3, C3-4 and C4-5 discectomy and fusion 2010: revision of fusion due to failure at C3-4 and C4-5 2011: Fusion from C2 to T4. SCS Removal 2019 Spinal Cord Stimulator Trial -Dr. Clemons 11/02/18 11/02/2018 - 11/06/2018 100% symptom benefit History of facial surgery Family History Mother Diabetes Social History Smoking and tobacco/nicotine status: never used tobacco/nicotine Alcohol intake: former Substance/Drug Use: never Household members: significant other Marital status: Single Current occupational status: retired Data Anesthesia 12/25/23 10:15 12/25/23 10:15 Short CBC 12/25/23 Range/Units 10:15 WBC 7.13 (3.29-11.43) 10^3/uL Hgb 15.30 (11.27-16.99) g/dL Hct 46.3 (37-53) % MCV 92.0 (82-101) fl Plt Count 214 (157-399) 10^3/cmm Neut % (Auto) 64.5 % Neut # (Auto) 4.60 (1.8-7.7) 10^3/uL Cardiac Studies: 2 Sestamibi Stress Test (Cardiology) 08/05
[2023-12-25 10:57] LABS: Anion Gap 14.5 (5-19); Blood Urea Nitrogen 19 mg/dL (8-23); Calcium 8.7 mg/dL (8.5-10.5); Carbon Dioxide 24 mmol/L (22-29); Chloride 103 mmol/L (98-107); Creatinine Clr Calc Pharmacy 96.2781; Glucose 121 mg/dL (65-115); Osmolality Calculated 288 mOsm/kg (285-295); Potassium 4.5 mmol/L (3.5-5.1); Sodium 137 mmol/L (136-145)
--- NOTE | 2023-12-25 10:57 | ANES.PROC ---
Anesthesia Procedures Procedure/Date: 12/25/23 Nerve Block ^: Nerve Block 1: Main Anesthesia: spinal anesthesia block Time Out Performed: Yes Consent: requested by attending/covering physician, from patient, risks and benefits reviewed and patient agrees to proceed Nerve block location: adductor canal (L) Anesthesia monitors applied: pulse oximetry, EKG, BP cuff and oxygen Nerve block position: supine Anesthetic Used: ropivicaine 0.5% (30 ml) and with decadron (4 mg) Ultrasound used to: recognize landmarks and visualize and ID femerol nerve Nerve Stimulator Used?: No Interscalene/Femoral BLK: 4 stimuplex 21 g needle used for position and inplane approach, visualize local anesthetic spread and no vascular puncture identified Injection: neg aspiration of heme Patient Tolerated Procedure: well and no complications Complications: none
[2023-12-25] MEDS: ceFAZolin 2,000 MG in sodium chloride 0.9% (plus) 50 ML 100 MG IV ×2 (11:39→19:30)
[2023-12-25] MEDS: tranexamic acid 1,000 mg/10mL SDV 1000 MG IV (11:50)
[2023-12-25] MEDS: ketorolac 30 mg/mL INJ XX (12:07)
[2023-12-25] MEDS: EPINEPHrine 1 mg/mL INJ XX (12:07)
[2023-12-25] MEDS: tranexamic acid 1,000 mg/10mL SDV 1000 MG XX (12:07)
[2023-12-25] MEDS: ROPivacaine 0.2% Premix 100 mL 200 MG INTRA-ARTI (12:07)
[2023-12-25] MEDS: vancomycin 1,000 MG SDV 1000 MG XX (12:15)
--- NOTE | 2023-12-25 13:27 | P.BOP_ITS ---
Date of Procedure: 12/25/2023 Surgeon: Petey Sun DO Electrician Substation Supervisor(s): Marv Sun PA-C Procedure(s) performed: Left total knee arthroplasty Ish robotic assisted Findings of the procedure(s): Patient found to have severe left knee degenerative joint disease underwent left total knee arthroplasty Ish robotic assisted without complications or issues procedure went as planned. Estimated blood loss: 25 mL Specimen(s) removed: Tibia femur and patellar bone cuts removed Post-operative diagnosis: Left knee degenerative joint disease
--- NOTE | 2023-12-25 13:28 | P.OP_ITS ---
Operative Report Date of procedure: December 25, 2023 Surgeon: Petey Sun DO Servomechanism Designer: Marv Sun PA-C: PA was necessary for assistance in this case with leg positioning retraction and protection of neurovascular structures as well as assistance in implantation wound closure and dressing application. Procedure: Preoperative diagnosis: Left knee degenerative joint disease Post-op diagnosis: Same Procedure done: Left total knee arthroplasty, cemented?robotic assisted Ish Implants: Campbell triathlon size 4 femur CR cemented?left Campbell triathlon size? 5 tibia universal baseplate cemented Campbell triathlon symmetric patella size 36 mm Brian triathlon polyethylene 9mm Surgeon: Petey Sun DO Estimated blood?loss: 25 mL Tourniquet 54minutes IV fluids: 900 mL Urine output: 200 mL Complications: None Condition: stable Disposition: floor Brief History: Patient is a 73-year-old male with with chronic?left knee degenerative joint disease.? Patient has been worked up in the outpatient setting in the orthopedic office at this point time through shared decision making given? [id number] arthritis as well as failed conservative treatment, and pt would?like to proceed with a?left total knee arthroplasty.? Through shared decision making elected to proceed with surgical intervention for?left total knee arthroplasty.? We talked about continued conservative treatment and surgical intervention as far as the risk benefits complications alternatives surgical and nonsurgical treatment options.? At this point time understanding patient risks with surgery he agrees to proceed with surgical intervention.? Once again? risk with surgery include but are not?limited to make it better make it worse blood clot, heart attack, stroke, on the table, infection, injury to nerves or vessels, persistent pain, arthrofibrosis, implant failure.? Understanding these risks patient agrees to proceed with surgical intervention consent was obtained in the office.? All questions answered. Procedure: Patient was seen and evaluated in the preoperative holding area.? Consent was reviewed and signed with patient with plan for?left total knee arthroplasty.? All questions answered.? Correct extremity marked.? Patient seen and evaluated by the anesthesia department and once cleared for surgery was taken back to the operative suite.? Patient was placed into a supine position on the OR table.? All bony prominences were well-padded.? Patient was appropriately secured to the bed.? Patient underwent anesthesia per the anesthesia department.? Patient received spinal anesthesia and? Johnston catheter was placed.? A nonsterile tourniquet was applied to the?left thigh.? At this point in time a final timeout performed.? Patient received appropriate preoperative antibiotics and TXA. Next the?left?lower extremity was then prepped and draped in standard orthopedic fashion. Esmarch tourniquet was used exsanguinate the?left?lower extremity.? To urniquet was insufflated to 250 mmHg. A standard anterior incision was made over midline of the knee.? Sharp scalpel excision through skin and subcutaneous tissue full-thickness skin flaps were made.? Fascia was elevated off of the extensor retinaculum was stable with medial parapatellar arthrotomy was then made.? The performed standard sequential releases..? Immediately on entry into the joint patient was found to have severe eburnated bone and tricompartmental arthritic changes noted.? With significant osteophyte formation.? Next the the patella was then stuffed and the knee was then flexed.?? Souleymane was placed superiorly around the anterior aspect of the femur this was freed of synovium and I subsequently then placed by 2 femur pins to establish my femur arrays for the Ish robot.? These were then placed bicortically and? femur array was then appropriately secured with appropriate visualization.? Next attention was turned towards the tibial rays.? These were then drilled sequenti ally bicortically in parallel fashion and intraincisional.? I then placed my guide as well as my tibial array on in place.? This was appropriately secured and had excellent visualization with the Ish robot.? Next the tibial checkpoint as well as femur checkpoint were then placed.? At this point time I then subsequently established my head center as well as my medial?lateral malleoli as well as my checkpoints.? Next utilizing standard Ish technology I then mapped out the appropriate points and confirmation points around the femur as well as the tibia in standard fashion.? Once this was then done I then removed all osteophytes in preparation for dynamic testing.? All osteophytes were removed as well as I removed the ACL and the PCL was excised due to its significant tearing and degeneration noted.? At this point time the knee was brought into full extension and we performed our standard evaluation of our gap balancing stressing his?ligaments and extension as well as flexion appropriate adjustments were made to have appropriate gap balancing in both flexion and extension.? This plan for final counts.? We get a preoperative plan evaluating our implants which was a size 4 femur and a size 5 tibia.? Next we brought in the Ish robot and sequentially made our femur cuts.? All excess bony cuts were then removed.? Finally we made our tibial cut.? Once this was done a standard PCL retractor was then placed into this position I excised the medial and?lateral meniscus.? The tibial cut was then subsequently removed all excess bony debris was removed.? I then utilized a?lamina education liaison and remove the posterior osteophytes.? At this point time sized the tibia and confirmed this was a size 5.? I utilized our blunt probe to establish rotation of tibial implant.? Once this was done I then placed my tibia size 5 trial in appropriate position and then subsequently placed tibial pins to hold this into place placed a size 9 mm poly as well as a size 4 femur which was appropriately impacted in place knee was then subsequently brought into extension. Trials were then assessed,? this was stable with varus valgus stress in extension as well as had symmetrical translation when brought into flexion demonstrating symmetrical gaps. I had excellent balance gaps in flexion and extension with varus and valgus stresses.? At this point I was satisfied with these implants these were then verified and opened on the back table size 5 tibia, size4 femur,? size 9 mm polythickness.? We did confirm appropriate gap balancing and stresses as well as alignment utilizing? Ish and were satisfied with this plan.? ?At this point time with my trials in place I then towel clip the patella everted this made appropriate measurements subsequently utilizing freehand technique performed by patellar resurfacing this was confirmed to be appropriate resection and subsequently sized to be a 36 mm symmetric.? My drill peg guides were then clamped and appropriate position and appropriate position in the patella for appropriate tracking and parallel with the joint.? Pegs were drilled trial implant was placed and the knee was then subsequently ranged and found to have excellent patellar tracking.? Femur pegs were then drilled.? Satisfied with our tibial placement rotation I then utilized the keel punch and prepped the tibia.? At this point time all of our trial implants were removed.? All mega ckpoints as well as guidepins and arrays were removed and appropriate counts made.? The wound bed? was thoroughly irrigated and dried and prepped for cementation.? Cement was mixed on the back table.? Once cement was ready this was then covered onto the tibia and the tibial baseplate was then impacted and all excess cement was removed.? Next the polyethylene was then impacted into place on the tibial baseplate.? Next cement was placed onto the femur as well as under the femur implants and impacted in to place and all excess cement was extruded and removed.? Knee was taken into full extension? to clear all excess cement was removed.? Warm saline was placed over the joint.? I then towel clip patella and dried for cementation. cemented the patella into place.? This was all clamped and the cement was allowed to cure.? Thorough irrigation performed with pulse?lavage.? I then placed my periarticular injection while the cement was curing.? Once cured the knee was taken through range of motion and had excellent stability and gaps were balanced in flexion and extension.? Tourniquet was then deflated. hemostasis satisfactory with electrocautery.? Vancomycin powder was placed in the incision. Next I then subsequently closed the capsule with Ethibond suture as well as a running strata fix suture.? Knee was then taken through range of motion 30 times.? Next the skin was then closed in?laye red fashion of running stratifix sutures of deep and subcutenous tissue and skin.? ?closed in flexion and Dermabond glue was then placed over the incision this allowed to cure.? Incision was covered with Silverlon, with ABDs soft roll and Tremayne wrap.? Patient was then awakened from anesthesia and taken to PACU in stable condition. Disposition: Patient taken to PACU in stable condition will be admitted to the floor for pain control PT/OT weight-bear as tolerated?left?lower extremity dressing changes as needed, DVT prophylaxis. Pain control. Patient will receive appropriate postoperative antibiotics. patient will be seen today by the internal medicine team for medical management.? Patient will follow up with the office in 2 weeks.? Patient understands agrees with current plan.? All questions answered.
--- NOTE | 2023-12-25 13:42 | PM.PACU ---
PACU note Narrative: Patient is a 73-year-old male just underwent a left total knee arthroplasty. Pt transferred to PACU in stable condition. Dressing is dry. pt is awake and alert. pt can wiggle toes and plantarflex and dorsiflex foot. pt able to perform straight leg raise, Femoral nerve intact. Distal pulses are palpable toes are warm and well-perfused. Cap refill is normal and under 2 seconds. pt is starting to gain sensation back in foot and can feel pressure when touching toes and midfoot. Pain is controlled. Exam: awake Disposition: admitted
--- NOTE | 2023-12-25 14:15 | ANE.PACU2 ---
Inpatient post-anesthesia follow up: Airway intact: Yes Vital signs: Temperature 98.1 F Pulse Rate 91 Respiratory Rate 20 Blood Pressure 113/71 Pulse Oximetry 94 Oxygen Delivery Me thod Room Air Oxygen Flow Rate Fraction of Inspir ed Oxygen Hydration adequate: Yes Nausea and vomiting: No Pain level: 2 Mental status: Baseline
--- NOTE | 2023-12-25 14:50 | ANE.PACU2 ---
Inpatient post-anesthesia follow up: Airway intact: Yes Vital signs: Temperature 98.1 F Pulse Rate 94 Respiratory Rate 15 Blood Pressure 113/71 Pulse Oximetry 91 Oxygen Delivery Me thod Room Air Oxygen Flow Rate Fraction of Inspir ed Oxygen Hydration adequate: Yes Nausea and vomiting: No Pain level: 1 Mental status: Baseline
[2023-12-25] MEDS: lactated ringers 1,000 ML 100 ML IV (15:18)
[2023-12-25] MEDS: chlorhexidine gluconate 0.12% Btl 473 mL 30 ML MUCOUS MEM ×3 (15:18→21:51)
[2023-12-25] MEDS: tranexamic acid 1,000 MG/100 ML PREMIX 600 MG IV (18:01)
[2023-12-25] MEDS: docusate sodium 100 mg Capsule PO (18:01)
[2023-12-25] MEDS: iron polysaccharide complex 150 mg Capsule PO (18:01)
[2023-12-25] MEDS: calcium carb-vit d 600mg/400unit 1 Tablet 1 EACH PO (18:01)
[2023-12-25] MEDS: mupirocin oint 22 gm 1 APPLIC NASAL (18:02)
--- NOTE | 2023-12-25 19:17 | PM.CONSULT ---
Providers/Reason For Consult Consulting Physician/Specialty*: Frase/Hospitalist Reason for Consult*: medical issues: HTN, sleep apnea, history of diabetes, bipolar Requesting Physician: Dr Sun Attending Physician: Petey Sun DO Primary Care Provider: ENMANUEL Buenrostro History of Present Illness History of Present Illness Billy Bishop is a 73 year old male who presented to [facility] on the day of admission for a total knee replacement by Dr. Sun. He had a left total knee arthroplasty with cement and Ish assistance. epidural anesthesia was used. He tolerated procedure well without any complications. At the present time patient is complaining of some discomfort in his right lower extremity that is new. Describes it as a pain throughout the entire leg. He can move his toes and feel touch is but the leg just seems hypersensitive. Left lower extremity is starting to bother him more postoperatively. He has been doing exercises as instructed recently. He denies any issues with chest pain, difficulty breathing, nausea or vomiting. All medications were reviewed. He had Seroquel on his home medications but indicates that he quit taking it about 3 weeks ago because he did not like how it made him feel. It had been prescribed due to restless leg symptoms. It has been removed from his home medication list. Hospitalist were consulted postoperatively due to history of diabetes, hypertension, restrictive lung disease, sleep apnea and PTSD/bipolar disorder. Overall patient feels like he is doing well. He was seen in the preoperative clinic and that note was reviewed. Review of Systems General: Reports: Other (ROS as per HPI or as noted here) Card: Denies: chest pain Resp: Denies: dyspnea GI: Denies: fecal incontinence : Denies: urinary incontinence Medications/Allergies Home Medications Medication Instructions Recorded Confirmed Last Taken Type divalproex 250 mg tablet,delayed 250 mg PO TID #90 tabs 01/18/23 12/22/23 12/24/23 Rx release blood-glucose meter (OneTouch #1 ea 07/07/23 11/28/23 Unknown Rx Verio Flex Meter) lancets 30 gauge (Ultra Fine #200 ea 07/07/23 11/28/23 Unknown Rx Lancets) blood sugar diagnostic (OneTouch #100 strips 12/14/23 Unknown Rx Verio test strips) escitalopram oxalate 20 mg tablet 20 mg PO DAILY 12/22/23 12/22/23 12/24/23 History fluticasone fur. 100 mcg-umeclid 1 inh inhalation DAILY 12/22/23 12/22/23 12/25/23 History 62.5 mcg-vilant 25 mcg inhalat.powder (Trelegy Ellipta) lisinopril 20 mg tablet 20 mg PO DAILY 12/22/23 12/22/23 12/24/23 History rosuvastatin 5 mg tablet 5 mg PO DAILY 12/22/23 12/22/23 12/24/23 History tamsulosin 0.4 mg capsule 0.4 mg PO DAILY 12/22/23 12/22/23 12/24/23 History Allergies Allergy/AdvReac Type Severity Reaction Status Date / Time No Known Allergies Allergy Verified 12/06/23 09:15 Current Medications Generic Name Dose Route Start Last Admin Trade Name Freq PRN Reason Stop Dose Admin Calcium Carbonate 1 each 12/25/23 18:00 12/25/23 18:01 Calcium Carb-Vit D 600mg/400unit 1 Tablet PO 1 each BID MAYRA Administration Chlorhexidine Gluconate 30 ml 12/25/23 14:25 12/25/23 18:02 Chlorhexidine Gluconate 0.12% Btl 473 Ml MUCOUS MEM 30 ml QID MAYRA Administration Docusate Sodium 100 mg 12/25/23 18:00 12/25/23 18:01 Docusate Sodium 100 Mg Capsule PO 100 mg BID MAYRA Administration Lactated Ringer's 1,000 mls @ 100 mls/hr 12/25/23 14:25 12/25/23 15:18 Lactated Ringers IV 100 mls/hr .Q10H MAYRA Administration Acetaminophen 1,000 mg in 100 mls @ 400 mls/hr 12/25/23 14:25 12/25/23 14:58 Acetaminophen IV 12/26/23 06:39 Not Given Q8H MAYRA Mupirocin 1 applic 12/25/23 18:00 12/25/23 18:02 Mupirocin Oint 22 Gm NASAL 12/30/23 17:59 1 applic BID MAYRA Administration Protocol Polysaccharide Iron Complex 150 mg 12/25/23 18:00 12/25/23 18:01 Iron Polysaccharide Complex 150 Mg Capsule PO 150 mg BIDWM MAYRA Administration PFSH Acute PFSH: Medical History (Updated 12/25/23 @ 22:05 by Celeste Jain MD) Prostatic hypertrophy CRLD (chronic restrictive lung disease) Chronic migraine without aura, intractable, with status migrainosus Mild cognitive impairment with memory loss Osteoarthritis of left knee Type 2 diabetes mellitus Environmental and seasonal allergies Mixed hyperlipidemia Poor dentition Rotator cuff arthropathy of right shoulder Cerebellar ataxia Generalized spasm Arthritis of right shoulder region Arthritis of knee, left Major depressive disorder, recurrent, moderate Chronic post-traumatic stress disorder 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 Vitamin D deficiency Encounter for long-term opiate analgesic use Postlaminectomy syndrome of lumbosacral region Chronic narcotic use Low back pain Chronic thoracic spine pain Failed back syndrome, lumbosacral Fusion of spine, thoracic region Essential hypertension Obstructive sleep apnea on CPAP Pseudarthrosis following spinal fusion ADHD (attention deficit hyperactivity disorder), combined type PTSD (post-traumatic stress disorder) Bilateral carpal tunnel syndrome 07/17/2019 NCS BUE Chronic bilateral low back pain with bilateral sciatica Auditory processing disorder Unspecified dementia without behavioral disturbance Thoracic spinal stenosis Surgical History (Updated 12/25/23 @ 22:05 by Celeste Jain MD) Status post laminectomy with spinal fusion S/P knee surgery S/P spinal surgery 2009 Dr. Jose Roach [place], [place]: Multilevel cervical laminectomy/fusion/fixation. Dr. Jose Roach [place], [place] Patient reports C2-C3, C3-C4, C4-C5 Laminectomy/fusion/fixation 2013 Dr. Jose Mejía [place], [place] T1-T4 laminectomy/fusion/fixation 2015 Dr. Jose Roach [place], [place]. L3-L4, L4-L5, L5-S1, S1-S2 posterior laminectomy/fusion/fixation and bilateral iliac bones 06/06/19 Dr Thomas irrigation and debridement of posterior thoracic surgical wound dehiscence related to a previous thoracic spinal cord stimulator placement 07/24/2019 Dr. Gricelda Thomas: Thoracic laminotomies with removal of intraspinal, epidural paddle electrode arrays. Removal of subcutaneous programmable pulse generator. Back Surgery Attributes: Inpatient, Post-op complications, Bilateral. Comments: 2013: L3-4 and maybe one other. 2016: L2-3, L3-4, L4-5, and L5-S1 and bilateral sacroiliac fusion. Cervical fusion revision, Dr Chidi Roach, [place], [place], 2010 Dr Thomas 01/17/19 Thoracic laminotomy with placement of intraspinal, epidural paddle electrode arrays and placement of subcutaneous programmable pulse generator. Neck Surgery *Promoted* Attributes: Date: 2009, Inpatient, Post-op complications, Bilateral. Comments: 2010: C2-3, C3-4 and C4-5 discectomy and fusion 2010: revision of fusion due to failure at C3-4 and C4-5 2012: Fusion from C2 to T4. SCS Removal 2019 Spinal Cord Stimulator Trial -Dr. Clemons 11/02/18 11/02/2018 - 11/06/2018 100% symptom benefit History of facial surgery Family History Mother Diabetes Social History Smoking and tobacco/nicotine status: never used tobacco/nicotine Alcohol intake: former Substance/Drug Use: never Household members: significant other Marital status: Single Current occupational status: retired Vitals/I&O/Wt Last Vital Signs Temp 97.4 F L 12/25/23 14:55 Pulse 111 H 12/25/23 17:25 Resp 18 12/25/23 17:25 BP 131/84 12/25/23 17:25 Pulse Ox 94 12/25/23 17:25 O2 Del Method Room Air 12/25/23 17:25 12/25/23 12/25/23 12/25/23 06:59 14:59 22:59 Intake Total 700 / 700 480 / 1180 Output Total 400 / 425 Balance 675 / 675 80 / 755 Weight last 48 hrs Weight 104.099 kg Weight 104.326 kg Physical Exam Narrative: Patient is awake and alert, able to provide history. Pupils are equally round and reactive to light. Lungs are clear to auscultation bilaterally. Regular rate and rhythm. Abdomen is soft, nontender. Positive bowel sounds. Extremities left lower extremity with Tremayne wrap in place. Patient can wiggle toes. Dressing not removed. Right lower extremity with tenderness to palpation from foot to thigh pretty much anywhere that he is touched. Extremity is warm. Capillary refill is brisk. Sensation is intact to touch. No areas of erythema or bruising. Not particularly point tender on the back. No abnormal movements. Speech is clear. Cooperative. Urinary Catheter Management: Johnston Latex: Cath Placed During This Visit: yes Reason for Continuing Indwelling Catheter: Perioperative Use in Selected Surgeries Urinary Catheter Date of Insertion: 12/25/23 Urinary Catheter Time of Insertion: 11:49 Data 12/25/23 10:15 12/25/23 10:15 A&P Assessment and plan (1) Status post total knee replacement using cement: POD 0 Starting to have return of sensation to left lower extremity. Complaining of some pain in right lower extremity. I am not sure if this is from something during surgery, related to epidural or related to chronic pain and spinal issues. Qualifiers: Laterality: left Qualified Code(s): Z96.652 - Presence of left artificial knee joint (2) Obstructive sleep apnea on CPAP: On home CPAP (3) Chronic dyspnea: On chronic Trelegy Ellipta. From review of available records looks to have chronic restrictive lung disease and the details are not known. (4) PTSD (post-traumatic stress disorder): Chronically on divalproex and escitalopram. (5) Essential hypertension: Chronically on lisinopril (6) Mixed hyperlipidemia: Chronically on Crestor (7) Prostatic hypertrophy: Chronically on tamsulosin (8) Type 2 diabetes mellitus: Has improved and is no longer on treatment though does check blood sugars. Recent A1c 6.0. 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 Sun and orthopedics Reevaluate right lower extremity pain in the morning CPAP with sleep Continue incentive spirometry and breathing treatments as needed, if home inhaler is available may use Continue home dosing of divalproex and escitalopram Continue home lisinopril if blood pressures remain stable overnight Continue equivalent formulary statin Continue home tamsulosin Sliding scale insulin and Accu-Cheks for history of diabetes Consistent carb diet On eliquis for DVT prophylaxis No saran noted Has iron replacment Supportive care otherwise Thank you for consultation Will follow while patient is here and address acute medical issues should they arise Findings and plans were discussed with patient and he was given an opportunity to ask questions Consult Attestations Medical Necessity Statement: as per attending Diagnoses Status post total left knee replacement using cement Z96.652 Laterality: left Obstructive sleep apnea on CPAP G47.33; Z99.89 Chronic dyspnea R06.09 PTSD (post-traumatic stress disorder) F43.10 Essential hypertension I10 Mixed hyperlipidemia E78.2 Prostatic hypertrophy N40.0 Type 2 diabetes mellitus without complication, without long-term current use of insulin E11.9 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
[2023-12-25 21:37] LABS: Glucose Point of Care 186 mg/dL (70-110)
[2023-12-25 21:37] LABS: Glucose Point of Care > 600 mg/dL (70-110)
[2023-12-25] MEDS: insulin lispro 100 unit/1 mL SUBCUT (21:51)
[2023-12-25] MEDS: divalproex DR 250 mg Tablet PO (21:51)
[2023-12-25] MEDS: ketorolac 30 mg/mL INJ 15 MG IVP (21:57)
[2023-12-26] MEDS: lactated ringers 1,000 ML 100 ML IV (01:43)
--- NOTE | 2023-12-26 02:47 | PC.NURSE ---
pt care ice packs placed and removed according to order
[2023-12-26] MEDS: ceFAZolin 2,000 MG in sodium chloride 0.9% (plus) 50 ML 100 MG IV (03:39)
[2023-12-26 04:00] VITALS: BP 115/78; PULSE 84; RESP 16; TEMP 36.7; O2SAT 92
--- NOTE | 2023-12-26 04:07 | PC.NURSE ---
pt fsbg fsbg taken and given 'hi' reading. pt test repeated as per protocol and was 186.
[2023-12-26] MEDS: ketorolac 30 mg/mL INJ 15 MG IVP (04:52)
[2023-12-26 05:43] LABS: Basophils % 0.2 %; Eosinophils % 0.1 %; Hematocrit 40.7 % (37-53); Lymphocytes # 1.1 10^3/uL (0.8-4.8); Lymphocytes % 9.4 %; Mean Corpuscular HGB Conc 32.2 g/dL (30-55); Mean Corpuscular Hemoglobin 29.9 pg (27-33); Mean Corpuscular Volume 92.9 fl (82-101); Mean Platelet Volume 9.1 fL (7.4-10.4); Neutrophils # 9.79 10^3/uL (1.8-7.7); Neutrophils % 81.9 %; Nucleated Red Blood Cells % 0 %; Platelet Count 214 10^3/cmm (157-399); Red Blood Count 4.38 10^6/uL (3.85-5.65); White Blood Count 11.94 10^3/uL (3.29-11.43)
[2023-12-26 06:06] LABS: Anion Gap 14.3 (5-19); Blood Urea Nitrogen 25 mg/dL (8-23); Calcium 8.9 mg/dL (8.5-10.5); Carbon Dioxide 22 mmol/L (22-29); Chloride 107 mmol/L (98-107); Glucose 141 mg/dL (65-115); Osmolality Calculated 295 mOsm/kg (285-295); Potassium 4.3 mmol/L (3.5-5.1); Sodium 139 mmol/L (136-145)
[2023-12-26] MEDS: acetaminophen 1,000 MG/100 ML PIGGYBACK 400 MG IV (06:49)
[2023-12-26 07:49] VITALS: BP 102/53; PULSE 69; RESP 18; TEMP 36.3; O2SAT 93
--- NOTE | 2023-12-26 07:53 | PM.DCS ---
Discharge Providers Date of Admission: 12/25/23 13:14 Date of Discharge: December 26, 2023 Attending Provider at Admission: Petey Sun DO Attending Provider at Discharge: Petey Sun DO Consults: Dr. Jain?hospitalist yosef Crawford Primary Care Provider: ENMANUEL Buenrostro Diagnoses at Discharge Discharge Diagnosis (1) Status post total knee replacement using cement: Status: Acute Qualifiers: Laterality: left Qualified Code(s): Z96.652 - Presence of left artificial knee joint (2) Obstructive sleep apnea on CPAP: Status: Chronic (3) Chronic dyspnea: Status: Chronic (4) PTSD (post-traumatic stress disorder): Status: Chronic (5) Essential hypertension: Status: Chronic (6) Mixed hyperlipidemia: Status: Chronic (7) Prostatic hypertrophy: Status: Chronic (8) Type 2 diabetes mellitus: Status: Chronic Qualifiers: Diabetes mellitus complication status: without complication 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 Once cleared by anesthesia for surgery patient subsequently was taken back to the operative suite underwent anesthesia per anesthesia department and then subsequently underwent a [ left] total knee arthroplasty. Procedure was performed without any complications patient was taken to PACU in stable condition patient recovered well in PACU and then was admitted to the floor postoperatively internal medicine was consulted and on board for medical management and assistance with care. Patient received appropriate PT/OT, postoperative antibiotics, postoperative TXA, pain control, postoperative DVT prophylaxis. Elevation and ice. Patient encouraged for knee range of motion allowed weightbearing as tolerated to the operative lower extremity. Dressing was changed as needed, labs were monitored daily. Patient recovered well postoperatively and worked well and progressed well with therapy. Recovereds. well and progressed well postop on the floor. It was determined on postoperative day [ 1] the patient was stable for discharge from an orthopedic standpoint and medicine. Patient was comfortable with discharge and plan was discharged home. Patient received appropriate discharge instructions as well as pain medication and DVT prophylaxis postoperatively. Given appropriate instructions for dressing management. Patient will follow-up with Dr. Sun/orthopedics in the office in 2 weeks. All questions answered. Understand if there is any issues questions or concerns and contact the office. Physical Exam Narrative: Examination of the left knee: Examination left knee demonstrates dressings on in place is clean dry and intact not subsequently taken down distal pulses are palpable toes warm well-perfused compartments are soft compressible, patient can wiggle toes, plantarflex and dorsiflex ankle sensations intact to light touch distally. Urinary Catheter Management: Johnston Latex: Cath Placed During This Visit: yes, but has since been removed by the nurse Reason for Continuing Indwelling Catheter: Decision to DC Catheter Urinary Catheter Date of Insertion: 12/25/23 Urinary Catheter Time of Insertion: 11:49 Date Urinary Catheter Removed: 12/25/23 Time Urinary Catheter Discontinued: 20:00 Discharge Data Studies Completed and Pending Completed Studies During Hospitalization Category Date Time Status XR knee LT 1-2V [id number] Routine Exams 12/25/23 10:42 Completed Pending at discharge Category Date Time Status Basic Metabolic Panel AM LABS Lab 12/27/23 04:00 Ordered Basic Metabolic Panel AM LABS Lab 12/28/23 04:00 Ordered Complete Blood Count w/Auto AM LABS Lab 12/27/23 04:00 Ordered Complete Blood Count w/Auto AM LABS Lab 12/28/23 04:00 Ordered Radiology Impressions Knee X-Ray 12/25/23 10:42 IMPRESSION: Interval left knee replacement. Laboratory Results WBC 11.94 10^3/uL (3.29-11.43) H 12/26/23 04:52 RBC 4.38 10^6/uL (3.85-5.65) 12/26/23 04:52 Hgb 13.10 g/dL (11.27-16.99) 12/26/23 04:52 Hct 40.7 % (37-53) 12/26/23 04:52 MCV 92.9 fl (82-101) 12/26/23 04:52 MCH 29.9 pg (27-33) 12/26/23 04:52 MCHC 32.2 g/dL (30-55) 12/26/23 04:52 RDW 13.0 % (12.1-15.1) 12/26/23 04:52 Plt Count 214 10^3/cmm (157-399) 12/26/23 04:52 MPV 9.1 fL (7.4-10.4) 12/26/23 04:52 Neut % (Auto) 81.9 % 12/26/23 04:52 Lymph % (Auto) 9.4 % 12/26/23 04:52 [place] % (Auto) 8.0 % 12/26/23 04:52 Eos % (Auto) 0.1 % 12/26/23 04:52 Baso % (Auto) 0.2 % 12/26/23 04:52 Neut # (Auto) 9.79 10^3/uL (1.8-7.7) H 12/26/23 04:52 Lymph # (Auto) 1.1 10^3/uL (0.8-4.8) 12/26/23 04:52 [place] # (Auto) 1.0 10^3/uL (0.2-0.9) H 12/26/23 04:52 Eos # (Auto) 0.0 10^3/uL (0.0-0.8) 12/26/23 04:52 Baso # (Auto) 0.0 10^3/uL (0.0-0.1) 12/26/23 04:52 Nucleated RBC % (auto) 0 % 12/26/23 04:52 Nucleated RBCs # 0.0 /100WBC 12/26/23 04:52 Sodium 139 mmol/L (136-145) 12/26/23 04:52 Potassium 4.3 mmol/L (3.5-5.1) 12/26/23 04:52 Chloride 107 mmol/L (98-107) 12/26/23 04:52 Carbon Dioxide 22 mmol/L (22-29) 12/26/23 04:52 Anion Gap 14.3 (5-19) 12/26/23 04:52 BUN 25 mg/dL (8-23) H 12/26/23 04:52 Creatinine 0.9 mg/dL (0.7-1.2) 12/26/23 04:52 GFR Calculation Not Reportable 12/26/23 04:52 Glucose 141 mg/dL (65-115) H 12/26/23 04:52 POC Glucose 186 mg/dL (70-110) H 12/25/23 21:28 Calculated Osmolality 295 mOsm/kg (285-295) 12/26/23 04:52 Calcium 8.9 mg/dL (8.5-10.5) 12/26/23 04:52 Blood Type O Negative 12/25/23 10:15 Rho(D) Type Negative 12/25/23 10:15 Antibody Screen Negative 12/25/23 10:15 Procedures Performed Left TKA Vitals Last Vital Signs Temp 97.4 F L 12/26/23 07:49 Pulse 69 12/26/23 07:49 Resp 18 12/26/23 07:49 BP 102/53 12/26/23 07:49 Pulse Ox 93 12/26/23 07:49 O2 Del Method Room Air 12/26/23 07:49 Discharge Plan Discharge Patient Disposition: Home Condition: Stable Prescriptions: New Eliquis 2.5 mg tablet 2.5 mg PO BID 14 Days Qty: 28 0RF Calcium 600 + D(3) 600 mg-10 mcg (400 unit) tablet 1 tab PO DAILY 30 Days Qty: 30 0RF Continued divalproex 250 mg tablet,delayed release (DR/EC) 250 mg PO TID Qty: 90 2RF lisinopril 20 mg tablet 20 mg PO DAILY Rx Instructions: TAKE 1 TABLET BY MOUTH EVERY 12 HOURS tamsulosin 0.4 mg capsule 0.4 mg PO DAILY Rx Instructions: TAKE 2 CAPSULES BY MOUTH DAILY escitalopram oxalate 20 mg tablet 20 mg PO DAILY Rx Instructions: TAKE 2 TABLETS BY MOUTH DAILY rosuvastatin 5 mg tablet 5 mg PO DAILY Rx Instructions: TAKE 1 TABLET BY MOUTH DAILY Trelegy Ellipta 100-62.5-25 mcg blister with device 1 inh inhalation DAILY Rx Instructions: INHALE 1 PUFF BY MOUTH DAILY No Action mupirocin 2 % ointment 1 applic topical BID (DME) blood-glucose meter [OneTouch Verio Flex meter] Misc See Rx Instructions .Route Qty: 1 0RF Rx Instructions: test blood sugar twice daily (DME) lancets [Ultra Fine Lancets] 30 gauge misc See Rx Instructions .Route Qty: 200 0RF Rx Instructions: test blood sugar twice daily (DME) OneTouch Verio test strips Strip See Rx Instructions .ROUTE .COMPLEX Qty: 100 0RF Dose Instruction: USE TO TEST SUGAR TWICE DAILY Rx Instructions: USE TO TEST SUGAR TWICE DAILY Discharge Orders: Discharge Order (Routine); Ordered 12/26/23 Ordered By: Petey Sun Other Ambulatory Orders: DME: Walker (Order) Location: None Selected Ordered By: Petey Sun Ref[place]: [facility] [place] Sujata Tuttle FNP [Primary Care Provider] - 01/01/24 2:20 pm Petey Sun DO [Physician] - 01/09/24 3:00 pm Discharge Diet: Regular Discharge Activity: Limit activity as instructed and Use walker/crutches as instructed Patient Instructions: Oxycodone, Rapid Release (By mouth), Ondansetron (By mouth), Calcium Supplement (By mouth), Apixaban (By mouth), Total Knee Replacement (GEN), Joint Replacement Stoplight, Opioid Safety Activity Restrictions/Additional Instructions: Orthopedic discharge instructions May remove Tremayne wrap after 3 days keep incisions clean dry and intact, leave Silverlon bandage dressings on in place for 7 days after that may rinse incisions with warm soapy water pat dry and redress with a dry dressing. Patient may weight-bear as tolerate to the operative extremity Utilize crutches as needed Encourage knee range of motion Ice and elevate as needed for pain and swelling Take pain medication as prescribed Take antinausea medication as needed Take calcium and vitamin D for bone health and healing The prescribed Eliquis twice daily for the next 14 days for blood clot prevention May supplement for pain with ibuprofen [id number] as needed No baths or soaks Follow-up in the orthopedic office in 2 weeks Contact the office for any questions or concerns Discharge Attestations Time Spent in Discharge Care*: less than 30 min Quality Metrics Clinical Quality Measures [ No reported AMI, CVA or VTE this stay] Coding Level of Care Code Acute Code for Chg Fwd Diagnoses Status post total left knee replacement using cement Z96.652 Laterality: left Obstructive sleep apnea on CPAP G47.33; Z99.89 Chronic dyspnea R06.09 PTSD (post-traumatic stress disorder) F43.10 Essential hypertension I10 Mixed hyperlipidemia E78.2 Prostatic hypertrophy N40.0 Type 2 diabetes mellitus without complication, without long-term current use of insulin E11.9 Diabetes mellitus complication status: without complication 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
[2023-12-26] MEDS: tamsulosin 0.4 mg Capsule PO (08:40)
[2023-12-26] MEDS: escitalopram 10 mg Tablet 20 MG PO (08:40)
[2023-12-26] MEDS: multivitamin therapeutic Tablet 1 TAB PO (08:40)
[2023-12-26] MEDS: divalproex DR 250 mg Tablet PO (08:40)
[2023-12-26] MEDS: calcium carb-vit d 600mg/400unit 1 Tablet 1 EACH PO (08:40)
[2023-12-26] MEDS: lisinopril 20 mg Tablet PO (08:40)
[2023-12-26] MEDS: docusate sodium 100 mg Capsule PO (08:41)
[2023-12-26] MEDS: apixaban 5 mg Tablet 2.5 MG PO (08:41)
[2023-12-26] MEDS: atorvastatin 40 mg Tablet 20 MG PO (08:41)
[2023-12-26] MEDS: iron polysaccharide complex 150 mg Capsule PO (08:41)
[2023-12-26] MEDS: insulin lispro 100 unit/1 mL SUBCUT (08:43)
[2023-12-26] MEDS: mupirocin oint 22 gm 1 APPLIC NASAL (08:44)
--- NOTE | 2023-12-26 09:23 | PC.PHAR ---
unable to update med list due to discharge orders being in-pt came from surgery
--- NOTE | 2023-12-26 10:06 | PC.CHAP ---
Pastoral Care Encounter/Spiritual Assessment Type of Contact [] Declined interlocking tower operator visit [] Patient/Family/Request visit [] Outpatient visit [] Follow-up visit [] Physician referral [] Code/Alert [] Routine visit [] Staff referral [] Actively dying [] Patient sleeping [] Family support [] [] Out of room [] Palliative care [] [x] Receiving care in room [] Pre-surgical visit [] Trauma [] Long length of stay [] ICU visit [] Other: Relational/Emotional Strength [] Patient feels connected with others/family/visitors/staff [] Distress [] Loneliness/isolation [] Abandonment Spirituality of Patient [] Person of Merle [] Attends Adventist of their Merle [] Believes in Prayer [] Reads Bible or Jew materials [] There are Spiritual issues to be addressed Director Funds Development Interventions [] Prayer [] Active listening [] Non-anxious presence [] Spiritual/emotional support [] Crisis/trauma care [] Spiritual counseling [] Bereavement support [] Provided bereavement packet [] Provided Bible/devotional materials [] Provided toy/stuffed animal, coloring book to patient or family member [] Provided Communion [] Anointing/[place] [] Salvation [] Completed spiritual assessment [] Other: Impact on Illness or Injury [] Angry [] Fearful [] Anxious [] Often cries [] Exhaustion [] Unable to work [] Unable to attend adventist [] Unable to walk/stand [] Unable to read [] Unable to drive [] Unable to eat/drink [] Unable to sleep [] Unable to be with family [] Patient intubated [] Other: Summary Time spent with patient
[2023-12-26 10:39] VITALS: PULSE 97; RESP 17; O2SAT 93
[2023-12-26 11:16] LABS: Glucose Point of Care 122 mg/dL (70-110)
--- NOTE | 2023-12-26 11:21 | P.PN_ITS ---
Subjective 2 Subjective: Seen this morning. Says he is excited to be discharged. He started moving his knee when I was seeing him. He states he also walked and feels great. Vitals/I&O/Wt Last Vital Signs Temp 97.4 F L 12/26/23 07:49 Pulse 97 12/26/23 10:39 Resp 17 12/26/23 10:39 BP 102/53 12/26/23 07:49 Pulse Ox 93 12/26/23 10:39 O2 Del Method Room Air 12/26/23 10:39 12/25/23 12/26/23 12/26/23 22:59 06:59 14:59 Intake Total 480 / 1180 1200 / 2380 2104.833 / 2104.833 Output Total 500 / 525 350 / 875 Balance - 850 / 1505 2104.833 / 2104.833 Weight last 48 hrs Weight 104.326 kg Weight 104.099 kg Weight 104.326 kg Physical Exam 2 Narrative: No acute distress. Urinary Catheter Management: Noonan Latex: Cath Placed During This Visit: yes, but has since been removed by the nurse Reason for Continuing Indwelling Catheter: Decision to DC Catheter Urinary Catheter Date of Insertion: 12/25/23 Urinary Catheter Time of Insertion: 11:49 Date Urinary Catheter Removed: 12/25/23 Time Urinary Catheter Discontinued: 20:00 Data 12/26/23 04:52 12/26/23 04:52 A&P Assessment and plan (1) Status post total knee replacement using cement: POD 1 Starting to have return of sensation to left lower extremity. Complaining of some pain in right lower extremity. I am not sure if this is from something during surgery, related to epidural or related to chronic pain and spinal issues. Qualifiers: Laterality: left Qualified Code(s): Z96.652 - Presence of left artificial knee joint (2) Obstructive sleep apnea on CPAP: On home CPAP (3) Chronic dyspnea: On chronic Trelegy Ellipta. From review of available records looks to have chronic restrictive lung disease and the details are not known. (4) PTSD (post-traumatic stress disorder): Chronically on divalproex and escitalopram. (5) Essential hypertension: Chronically on lisinopril (6) Mixed hyperlipidemia: Chronically on Crestor (7) Prostatic hypertrophy: Chronically on tamsulosin (8) Type 2 diabetes mellitus: Has improved and is no longer on treatment though does check blood sugars. Recent A1c 6.0. 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 Sun and orthopedics Reevaluate right lower extremity pain in the morning CPAP with sleep Continue incentive spirometry and breathing treatments as needed, if home inhaler is available may use Continue home dosing of divalproex and escitalopram Continue home lisinopril if blood pressures remain stable overnight Continue equivalent formulary statin Continue home tamsulosin Sliding scale insulin and Accu-Cheks for history of diabetes Consistent carb diet On eliquis for DVT prophylaxis Mckenzie noonan noted Has iron replacment Supportive care otherwise Patient is stable. Plan for discharge today. 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
[2023-12-26 12:00] VITALS: BP 122/65; PULSE 74; RESP 20; TEMP 36.7; O2SAT 95
--- NOTE | 2023-12-26 12:31 | PC.NURSE ---
Discharge Note Patient discharged to home via private vehicle accompanied by . Discharge instructions reviewed with patient and/or passenger relations representative. Mobile pharmacy medications and/or prescriptions provided. Belongings/home medications returned.
[2023-12-26 12:33] VITALS: PULSE 97; RESP 17; O2SAT 93
== END 2023-12-26 12:34 | disposition home or self-care (01) ==
LOC: MEDSURG 13:15
PROVIDERS: Physician Assistant; Admitting Provider Student in an Organized Health Care Education/Training Program; PCP Registered Nurse; Visit Provider Student in an Organized Health Care Education/Training Program
PROC: 8E0Y0CZ Robotic Assisted Procedure of Lower Extremity, Open Approach (ICD-10-PCS; CPT 27447; principal; 2023-12-25 10:50)
DX: M17.12 Unilateral primary osteoarthritis, left knee (principal); G47.33 Obstructive sleep apnea (adult) (pediatric); Z99.89 Dependence on other enabling machines and devices; R06.09 Other forms of dyspnea; F43.10 Post-traumatic stress disorder, unspecified; I10 Essential (primary) hypertension; E78.2 Mixed hyperlipidemia; N40.0 Benign prostatic hyperplasia without lower urinary tract symptoms; E11.9 Type 2 diabetes mellitus without complications
CPT/HCPCS: 20985; 27447; 36415; 36416; 51702; 73560; 80048; 82962; 85025; 86850; 86900; 93005; 96372; 97110; 97116; 97161; 97165; C1776; G0378; J0131; J0171; J0690; J1100; J1815; J1885; J2371; J2704; J2795; J3370; J7030; J7120

== ENCOUNTER → 2024-01-09 14:50 | Outpatient (BNVA) | payer MEDICARE, SELFPAY | PROVIDERS: PCP Registered Nurse; Visit Provider Student in an Organized Health Care Education/Training Program | DX: Z96.652 Presence of left artificial knee joint (principal) | CPT/HCPCS: 73560; 73565; 99024 ==

== ENCOUNTER → 2024-01-23 14:59 | Outpatient (BNVA) | payer MEDICARE, SELFPAY | PROVIDERS: PCP Registered Nurse; Visit Provider Student in an Organized Health Care Education/Training Program | DX: Z96.652 Presence of left artificial knee joint (principal) | CPT/HCPCS: 73560; 73565; 99024 ==

== ENCOUNTER 2024-01-30 06:00 | Outpatient (RCR) | payer MEDICARE, SELFPAY | END 2024-02-25 23:59 | disposition home or self-care (01) | LOC: WPT 06:00 | PROVIDERS: Visit Provider Student in an Organized Health Care Education/Training Program | DX: Z47.1 Aftercare following joint replacement surgery (principal); Z96.652 Presence of left artificial knee joint | CPT/HCPCS: 97110; 97112; 97161; 97530 ==

== ENCOUNTER → 2024-02-20 10:53 | Outpatient (BNVA) | payer MEDICARE, SELFPAY | PROVIDERS: PCP Nurse Practitioner Family; Visit Provider Student in an Organized Health Care Education/Training Program | DX: Z96.652 Presence of left artificial knee joint (principal) | CPT/HCPCS: 73560; 73565; 99024 ==

== ENCOUNTER 2024-02-26 06:00 | Outpatient (RCR) | payer MEDICARE, SELFPAY | END 2024-03-26 23:59 | disposition home or self-care (01) | LOC: WPT 06:00 | PROVIDERS: PCP Nurse Practitioner Family; Visit Provider Student in an Organized Health Care Education/Training Program | DX: Z47.1 Aftercare following joint replacement surgery (principal); Z96.652 Presence of left artificial knee joint | CPT/HCPCS: 97110; 97112; 97530 ==

== ENCOUNTER → 2024-03-07 11:15 | Outpatient (BNVA) | payer MEDICARE, SELFPAY | PROVIDERS: PCP Nurse Practitioner Family; Visit Provider Registered Nurse | DX: H91.93 Unspecified hearing loss, bilateral (principal); M65.321 Trigger finger, right index finger | CPT/HCPCS: 87070; 87205 ==

== ENCOUNTER → 2024-03-19 16:23 | Outpatient (BNVA) | payer MEDICARE, SELFPAY | PROVIDERS: PCP Nurse Practitioner Family; Visit Provider Orthopaedic Surgery | DX: M54.9 Dorsalgia, unspecified (principal); Z98.1 Arthrodesis status | CPT/HCPCS: 72110; 99213 ==

== ENCOUNTER → 2024-04-12 10:49 | Outpatient (BNVA) | payer MEDICARE, SELFPAY | PROVIDERS: PCP Nurse Practitioner Family; Visit Provider Student in an Organized Health Care Education/Training Program | DX: M79.641 Pain in right hand (principal); M65.341 Trigger finger, right ring finger; M65.321 Trigger finger, right index finger; Z79.899 Other long term (current) drug therapy | CPT/HCPCS: 73130; 99213 ==

== ENCOUNTER 2024-08-27 06:30 | Outpatient (RCR) | payer MEDICARE, SELFPAY | END 2024-09-26 23:59 | disposition home or self-care (01) | LOC: WPT 06:30 | PROVIDERS: Visit Provider Registered Nurse | DX: M54.12 Radiculopathy, cervical region (principal) | CPT/HCPCS: 97163 ==

== ENCOUNTER → 2024-10-08 09:00 | Outpatient (BNVA) | payer MEDICARE, SELFPAY | PROVIDERS: Referring Provider Registered Nurse; Visit Provider Psychiatry & Neurology Neurology | DX: R41.3 Other amnesia (principal); G43.711 Chronic migraine without aura, intractable, with status migrainosus; I10 Essential (primary) hypertension; E55.9 Vitamin D deficiency, unspecified; G89.29 Other chronic pain; M54.9 Dorsalgia, unspecified; F32.A Depression, unspecified; F90.9 Attention-deficit hyperactivity disorder, unspecified type; F43.10 Post-traumatic stress disorder, unspecified | CPT/HCPCS: 99203 ==

== ENCOUNTER 2024-10-22 10:01 | Outpatient (CLI) | payer MEDICARE, SELFPAY ==
--- NOTE | 2024-10-22 10:15 | MR_ITS ---
WS: [id number] MRI HEAD WITH CONTRAST TECHNIQUE: Sagittal T1, T2 axial, T2 axial FLAIR, axial susceptibility weighted imaging, axial diffus ion weighted images, and coronal T2 images were obtained. Pre and post-T1 axial and post T1 coronal i mages. ADC and FSPGR images. CLINICAL INFORMATION: G31.84 - Mild cognitive impairment of uncertain or unknow... COMPARISON: MRI 2020 FINDINGS: No evidence of restricted diffusion to suggest acute ischemia. Ventricular system and basilar cistern s are patent. Mild small vessel changes with moderate parenchymal volume loss slightly progressed com pared to previous. Parenchymal volume loss worse in the parietal lobes. Small vessel changes in the p ons. Normal posterior fossa. Normal vascular flow voids at the skull base. No extra-axial fluid colle ctions. Mild mucosal thickening paranasal sinuses. Mastoid air cells are well aerated. Normal posteri or nasopharynx. No hemosiderin on susceptibility-weighted images. Normal optic chiasm and pituitary infundibulum. Tem poral lobes and hippocampal formations are normal in appearance with mild symmetric atrophy. No abnormal gadolinium enhancement. MR/MR head wo/w con [id number] IMPRESSION: 1. No evidence of restricted diffusion to suggest acute ischemia. 2. Mild small vessel changes slightly progressed compared to previous. Small v essel changes in the dheeraj. Moderate parenchymal volume loss worse in the pariet al lobes appears slightly progressed compared to previous. 3. No abnormal gadolinium enhancement. 4. No hemosiderin on the susceptibly weighted images.
[2024-10-22] MEDS: gadobenate dimeglumine 20 mL vial IV (10:27)
== END 2024-10-22 10:02 | disposition home or self-care (01) ==
LOC: RAD 10:02
PROVIDERS: PCP Psychiatry & Neurology Neurology; Visit Provider Psychiatry & Neurology Neurology
DX: G31.84 Mild cognitive impairment of uncertain or unknown etiology (principal); G43.711 Chronic migraine without aura, intractable, with status migrainosus
CPT/HCPCS: 36415; 70553; 82542; 82607; 82652; 82746; 83090; 83735

== ENCOUNTER → 2024-12-03 10:34 | Outpatient (BNVA) | payer MEDICARE, SELFPAY | PROVIDERS: PCP Psychiatry & Neurology Neurology; Visit Provider Registered Nurse | DX: I10 Essential (primary) hypertension (principal); R42 Dizziness and giddiness; Z98.890 Other specified postprocedural states; Z79.899 Other long term (current) drug therapy | CPT/HCPCS: 80053; 82306; 82728; 83550; 84443; 85025 ==

== ENCOUNTER 2024-12-17 06:00 | Outpatient (RCR) | payer MEDICARE, SELFPAY | END 2024-12-27 23:59 | disposition home or self-care (01) | LOC: WPT 06:00 | PROVIDERS: Visit Provider Registered Nurse | DX: H81.10 Benign paroxysmal vertigo, unspecified ear (principal) | CPT/HCPCS: 97163 ==

== ENCOUNTER → 2024-12-24 13:14 | Outpatient (BNVA) | payer MEDICARE, SELFPAY | PROVIDERS: PCP Registered Nurse; Visit Provider Student in an Organized Health Care Education/Training Program | DX: Z96.652 Presence of left artificial knee joint (principal) | CPT/HCPCS: 73560; 73565; 99213 ==

== ENCOUNTER → 2025-01-01 14:04 | Outpatient (BNVA) | payer MEDICARE, SELFPAY | PROVIDERS: PCP Registered Nurse; Visit Provider Student in an Organized Health Care Education/Training Program | DX: M65.312 Trigger thumb, left thumb (principal); M18.12 Unilateral primary osteoarthritis of first carpometacarpal joint, left hand; M79.642 Pain in left hand | CPT/HCPCS: 20600; 73130; 99214; J3301; J3490 ==

== ENCOUNTER → 2025-01-02 12:03 | Outpatient (BNVA) | payer MEDICARE, SELFPAY | PROVIDERS: PCP Registered Nurse; Visit Provider Psychiatry & Neurology Neurology | DX: R41.3 Other amnesia (principal); G43.711 Chronic migraine without aura, intractable, with status migrainosus; I10 Essential (primary) hypertension; E55.9 Vitamin D deficiency, unspecified; R55 Syncope and collapse; R56.9 Unspecified convulsions; R42 Dizziness and giddiness; R29.818 Other symptoms and signs involving the nervous system | CPT/HCPCS: 36415; 83520; 99212 ==

== ENCOUNTER → 2025-02-24 14:07 | Outpatient (BNVA) | payer MEDICARE, SELFPAY | PROVIDERS: PCP Registered Nurse; Visit Provider Psychiatry & Neurology Neurology | DX: R41.3 Other amnesia (principal); R56.9 Unspecified convulsions; R55 Syncope and collapse; R42 Dizziness and giddiness; R29.818 Other symptoms and signs involving the nervous system | CPT/HCPCS: 99212 ==

== ENCOUNTER 2025-03-12 10:32 | Outpatient (CLI) | payer MEDICARE, SELFPAY ==
--- NOTE | 2025-03-12 10:45 | USCV_ITS ---
Billy Bishop Age: 74 Gender: M : 1950 Exam Date: 03/12/2025 10:42 Ordering Phys: Jackson Frye MD Technologist: [facility] Exam Location: [facility] Indication: syncope Risk Factors: Previous Vascular Surgery: Right Brachial BP: / Left Brachial BP: / Right Left Velocity (cm/s) Spectral Plaque Velocity (cm/s) Spectral Plaque Syst/Diast Broadening Syst/Diast Broadening 60.30/ 14.80 Prox CCA 58.10 / 16.20 55.60/ 15.20 Mid CCA 60.50 / 17.20 60.00/ 15.70 Distal CCA 60.50 / 17.80 47.10/ 16.70 Prox ICA 39.70 / 14.90 55.60/ 24.70 Mid ICA 39.00 / 16.30 48.60/ 21.30 Distal ICA 48.60 / 22.70 61.30 ECA 65.30 0.80 ICA/CCA 0.70 Antegrade Vertebral Antegrade 33.40/ 14.50 cm/s 41.30/ 13.00 cm/s Tri Subclavian Tri 64.00 103.3 0 FINDINGS Comparison:. 09/29/23 No significant elevation of systolic or diastolic velocities. Waveforms are normal. Mild carotid plaque. CONCLUSIONS No interval change in stenosis since prior exam. Bilateral ICA stenosis less than 50%. Dr. Rosa Yu DO (Electronically Signed) Final Date: 12 March 2025 12:04 S
== END 2025-03-12 10:33 | disposition home or self-care (01) ==
LOC: RAD 10:37
PROVIDERS: PCP Registered Nurse; Visit Provider Psychiatry & Neurology Neurology
DX: R55 Syncope and collapse (principal); I65.23 Occlusion and stenosis of bilateral carotid arteries
CPT/HCPCS: 93880

== ENCOUNTER → 2025-03-21 11:06 | Outpatient (BNVA) | payer MEDICARE, SELFPAY | PROVIDERS: PCP Registered Nurse; Visit Provider Internal Medicine | DX: R06.02 Shortness of breath (principal); R07.89 Other chest pain; I10 Essential (primary) hypertension; E78.2 Mixed hyperlipidemia; G47.33 Obstructive sleep apnea (adult) (pediatric); Z99.89 Dependence on other enabling machines and devices; F90.2 Attention-deficit hyperactivity disorder, combined type | CPT/HCPCS: 99204 ==

== ENCOUNTER 2025-04-17 08:53 | Outpatient (CLI) | payer MEDICARE, SELFPAY ==
--- NOTE | 2025-04-17 | ECG_ITS ---
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 The perfusion scan will be documented separately. DATA: Baseline heart rate was 66 beats per minute. Baseline blood pressure was 146/83 millimeters of mercury. Target heart rate was 146. Maximum heart rate achieved was 99. which was 67% of the predicted target heart rate. Maximum blood pressure was 147/98 millimeters of mercury. The reason for ending the test was completion of the protocol. The patient did not experience any symptoms. ELECTROCARDIOGRAM: BASELINE: Sinus rhythm. Normal axis. Poor R wave progression in the anterior lead cannot rule out old myocardial infarction EXERCISE: After Lexiscan injection, no ST-T changes suggestive of ischemic noted. No arrhythmia noted. CONCLUSION: Please note due to baseline abnormality of the EKG specificity and sensitivity of the EKG portion of LexiScan MIBI stress test will be low 1. EKG not suggestive of ischemia 2. Lexiscan injection unremarkable. 3. Perfusion scan will be documented separately. Electronically Signed On 04-30-2025 21:49:58 CDT by ERICH MARIANO [email or web address]
[2025-04-17 09:22] VITALS: BMI 33.1
--- NOTE | 2025-04-17 09:35 | NMCV_ITS ---
NM sheila perf SPECT r/s* [id number] Billy Bishop Age: 74 Gender: M : 1950 Exam Date: 04/17/2025 10:06 Ordering Phys: Von Louis M.D ([email or web address]) Technologist: ELVA Millan Exam Location: [facility] Indications: cp STRESS TEST [facility] IMAGE PROTOCOL Rest/Stress 1 Lexiscan Day Radiopharmaceutical Dose (mCi) Administration Site Administered by Rest: Tc-99m 10.4 IV ELVA Millan Sestamibi Stress:Tc-99m 33 IV Debora Betancur, SQE Sestamibi Rest: 17-Apr-2025 60 Discovery 630 Stress: 17-Apr-2025 30 Discovery 630 0.4mg Lexiscan. Images obtained in supine and prone position. SPECT RESULTS Technical Quality: Good Raw Data Analysis: Normal Image Corrections: No attenuation or motion correction applied Summed Stress Score: 3 Summed Rest Score: 3 Summed Difference Score: 2 PERFUSION FINDINGS Small area of fixed perfusion defect in the inferior wall. This is consistent with small area of prior infarct with no significant mike-infarct ischemia. FUNCTIONAL RESULTS (calculated via Gated SPECT) Stress Image LV EF (%): 65 Stress EDV (mL):97 TID: 1 Stress ESV (mL):34 FUNCTIONAL FINDINGS: There is normal left ventricular systolic function. IMPRESSIONS 1. Small area of prior infarct is seen in inferior wall. No evidence of ischemia. 2. LV systolic function normal. Von Louis MD (Electronically Signed) Final Date: 25 Apr 2025 15:37 S
[2025-04-17] MEDS: regadenoson 0.4 Mg/5 ml Syringe IVP (10:29)
[2025-04-17 10:39] VITALS: BP 121/76; PULSE 82
--- NOTE | 2025-04-17 14:15 | USCV_ITS ---
Billy Bishop Age: 74 Gender: M : 1950 Exam Date: 04/17/2025 15:15 Ordering Phys: Von Louis M.D ([email or web address]) Technologist: Exam Location: [facility] [place] Indication: cp sob BP: 135 / 76 HR: 90 Rhythm: Sinus Technical Quality: Adequate MEASUREMENTS (Male / Female) Normal Values 2D ECHO LV Diastolic Diameter PLAX 3.7 cm 4.2 - 5.9 / 3.9 - 5.3 cm IVS Diastolic Thickness 1.4 cm 0.6 - 1.0 / 0.6 - 0.9 cm IVS Systolic Thickness 1.8 cm LVPW Diastolic Thickness 1.7 cm 0.6 - 1.0 / 0.6 - 0.9 cm LVPW Systolic Thickness 1.8 cm LVOT Diameter 2.0 cm LV Ejection Fraction 2D Teich 57.2 % LV Ejection Fraction MOD 4C 62.0 % LV Ejection Fraction MOD 2C 50.5 % LV Ejection Fraction 2C AL 53.2 % LA Diameter 3.0 cm RA Systolic Volume 4C AL 42.4 ml RA Systolic Volume 4C MOD 39.8 ml LA Sys Volume AL 35.1 cm cubed LA Sys Volume Index AL 15.8 cm cubed/m squared Aorta at Sinotubular Diameter 3.6 cm M-MODE LA Ao Ratio MM 1.0 AV Cusp Separation MM 1.9 cm DOPPLER AV Peak Velocity 120.0 cm/s LVOT Peak Velocity 99.0 cm/s AV Area Cont Eq vti 2.8 cm squared AV Area Cont Eq pk 2.6 cm squared MV Peak Velocity 101.0 cm/s MV Area PHT 4.6 cm squared Mitral E to A Ratio 0.8 TR Peak Velocity 166.0 cm/s TR Peak Gradient 11.0 mmHg FINDINGS Left Ventricle Left ventricle is normal size. LV systolic function is normal with EF of 55-60%. No regional wall motion abnormalities are seen. Grade 1 diastolic dysfunction. Right Ventricle Normal in size and function Right Atrium Normal in size Left Atrium Normal in size Mitral Valve Structurally normal mitral valve. Mild mitral regurgitation Aortic Valve Structurally normal aortic valve. No stenosis stenosis or regurgitation. Tricuspid Valve Insufficient TR jet to calculate RVSP. Pulmonic Valve Not well visualized Pericardium Normal Aorta Normal in size IVC Not well visualized CONCLUSIONS LV systolic function is normal with EF of 55-60% Grade 1 diastolic dysfunction Mild mitral regurgitation Von Louis MD (Electronically Signed) Final Date: 01 May 2025 12:30 S
== END 2025-04-17 08:54 | disposition home or self-care (01) ==
PROVIDERS: PCP Registered Nurse; Visit Provider Internal Medicine
DX: R07.9 Chest pain, unspecified (principal); R06.02 Shortness of breath; R93.1 Abnormal findings on diagnostic imaging of heart and coronary circulation; I34.0 Nonrheumatic mitral (valve) insufficiency
CPT/HCPCS: 36415; 78452; 93017; 93306; A9500; J2785

== ENCOUNTER 2025-04-24 18:29 | Emergency (ER) | payer MEDICARE, SELFPAY ==
--- NOTE | 2025-04-24 18:33 | ECG_ITS ---
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 Measurements Intervals Diamond Rate: 126 P: 59 AZ: 132 QRS: 61 QRSD: 87 T: 77 QT: 335 QTc: 486 Interpretive Statements SINUS TACHYCARDIA SEPTAL MYOCARDIAL INFARCTION , PROBABLY OLD [40+ ms Q WAVE IN V1/V2] Compared to ECG 12/25/2023 10:37:34 Sinus rhythm no longer present Myocardial infarct finding still present Electronically Signed On 04-29-2025 11:49:01 CDT by Von Louis M.D. [id number]
[2025-04-24 18:34] VITALS: BP 121/74; PULSE 124; RESP 17; TEMP 38; O2SAT 94; BMI 33.0
--- NOTE | 2025-04-24 18:41 | XRR_ITS ---
PROCEDURE INFORMATION: Exam: XR Chest Exam date and time: 04/24/2025 7:52 PM Age: 74 years old Clinical indication: Pain; Chest pressure; Additional info: Chest pain TECHNIQUE: Imaging protocol: Radiologic exam of the chest. Views: 1 view. COMPARISON: CR XR chest 2V* [id number] 04/29/2021 12:26 PM FINDINGS: Tubes, catheters and devices: Overlying monitor leads. Lungs: No infiltrate or consolidation. No pulmonary edema. Pleural spaces: No pleural effusion or pneumothorax. Heart/Mediastinum: No cardiomegaly. Tortuous thoracic aorta. Bones/joints: Postsurgical hardware lower cervical upper thoracic spine region. Other findings: Allowing for difference in technique with AP portable supine exam today, no significant change with prior two-view exam. XR/XR chest 1V portable [id number] IMPRESSION: Portable chest is without acute cardiopulmonary abnormality.
--- NOTE | 2025-04-24 18:43 | ED_ITS ---
HPI - Chest Pain 2 General: Chief Complaint: Chest Pain Stated Complaint: CP SOB Time Seen by Provider: 04/24/25 18:41 History of Present Illness: Patient is a previously well 74-year-old male who states that when he woke up this morning he just did not feel right. He was unaware that he has a fever and on arrival has tachycardia and temperature of 100.4. states that he has been peeing frequently and coughing. Patient describes his chest pain as pressure-like, worse with exertion, and that he has felt the same pain over the last several weeks but today it intensified. There were no other sick contacts in the home. He denies nausea, vomiting, lightheadedness, diaphoresis, abdominal pain, dysuria associated with the symptoms. He has no other acute complaints. He has not taken anything for the pain. Related Data Home Medications ?Medication ?Instructions ?Recorded ?Confirmed acetaminophen 325 mg tablet 325 mg PO QID PRN 01/09/24 04/18/25 (Tylenol) galantamine 4 mg tablet 4 mg PO DAILY 02/06/2404/18 tamsulosin 0.4 mg capsule 0.4 mg PO DAILY 09/13/24 dextroamphetamine-amphetamine ER PO 10/08/24 04/18/25 25 mg 24hr capsule,extend release Previous Rx's ?Medication ?Instructions ?Recorded divalproex 250 mg tablet,delayed 250 mg PO TID #90 tab s 01/18/23 release lisinopril 20 mg tablet See Rx Instructions .Route 0 07/05/24 .COMPLEX #90 tabs cholecalciferol (vitamin D3) 1,250 50,000 unit PO .COM PLEX #4 caps 01/02/25 mcg (50,000 unit) capsule fluticasone fur. 100 mcg-umeclid See Rx Instructions . Route 03/24/25 62.5 mcg-vilant 25 mcg .COMPLEX #60 ea inhalat.powder (Trelegy Ellipta) pantoprazole 20 mg tablet,delayed 20 mg PO DAILY 30 da ys #30 tabs 04/18/25 release cefdinir 300 mg capsule 300 mg PO Q12H 10 days #20 c aps 04/25/25 Allergies Allergy/AdvReac Type Severity Reaction Status Date / Time No Known Allergies Allergy Verified 04/18/25 09:09 [facility] ED 2 PFSH: Medical History Prostatic hypertrophy CRLD (chronic restrictive lung disease) Chronic migraine without aura, intractable, with status migrainosus Mild cognitive impairment with memory loss Osteoarthritis of left knee Type 2 diabetes mellitus Environmental and seasonal allergies Mixed hyperlipidemia Poor dentition Rotator cuff arthropathy of right shoulder Cerebellar ataxia Generalized spasm Arthritis of right shoulder region Arthritis of knee, left Major depressive disorder, recurrent, moderate Chronic post-traumatic stress disorder 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 Vitamin D deficiency Encounter for long-term opiate analgesic use Postlaminectomy syndrome of lumbosacral region Chronic narcotic use Low back pain Chronic thoracic spine pain Failed back syndrome, lumbosacral Fusion of spine, thoracic region Essential hypertension Obstructive sleep apnea on CPAP Pseudarthrosis following spinal fusion ADHD (attention deficit hyperactivity disorder), combined type PTSD (post-traumatic stress disorder) Bilateral carpal tunnel syndrome 07/17/2019 NCS BUE Chronic bilateral low back pain with bilateral sciatica Auditory processing disorder Unspecified dementia without behavioral disturbance Thoracic spinal stenosis Surgical History S/P spinal surgery 2009 Dr. Jose Roach [place], [place]: Multilevel cervical laminectomy/fusion/fixation. Dr. Jose Roach [place], [place] Patient reports C2-C3, C3-C4, C4-C5 Laminectomy/fusion/fixation 2013 Dr. Jose Mejía [place], [place] T1-T4 laminectomy/fusion/fixation 2015 Dr. Jose Roach [place], [place]. L3-L4, L4-L5, L5-S1, S1-S2 posterior laminectomy/fusion/fixation and bilateral iliac bones 06/06/19 Dr Thomas irrigation and debridement of posterior thoracic surgical wound dehiscence related to a previous thoracic spinal cord stimulator placement 07/24/2019 Dr. Gricelda Thomas: Thoracic laminotomies with removal of intraspinal, epidural paddle electrode arrays. Removal of subcutaneous programmable pulse generator. Back Surgery Attributes: Inpatient, Post-op complications, Bilateral. Comments: 2014: L3-4 and maybe one other. 2016: L2-3, L3-4, L4-5, and L5-S1 and bilateral sacroiliac fusion. Cervical fusion revision, Dr Chidi [place], [place], 2011 Dr Thomas 01/17/19 Thoracic laminotomy with placement of intraspinal, epidural paddle electrode arrays and placement of subcutaneous programmable pulse generator. Neck Surgery *Promoted* Attributes: Date: 2009, Inpatient, Post-op complications, Bilateral. Comments: 2010: C2-3, C3-4 and C4-5 discectomy and fusion 2011: revision of fusion due to failure at C3-4 and C4-5 2012: Fusion from C2 to T4. SCS Removal 2019 Spinal Cord Stimulator Trial -Dr. Clemons 11/02/18 11/02/2018 - 11/06/2018 100% symptom benefit Status post laminectomy with spinal fusion S/P knee surgery History of facial surgery Family History Mother Diabetes Social History Smoking and tobacco/nicotine status: never used tobacco/nicotine Alcohol intake: former Substance/Drug Use: never Household members: significant other Marital status: Single Current occupational status: retired Physical Exam 2 Const: COMMON NORMALS: no acute distress, patient oriented x3 and alert HENMT: COMMON NORMALS: normocephalic and atraumatic HEAD & SCALP: n ormocephalic and atraumatic Eye: COMMON NORMALS: Equal, round and reactive pupils present, EOMs intact bilaterally and no scleral icterus PUPIL: Yes Equal, round and reactive pupils present Chest: OTHER: Chest pain not reproducible with palpation or deep inspiration. Tachycardic, regular rhythm. No murmur. Trace edema of the feet and legs to the midshin level. Resp: COMMON NORMALS: normal respiratory effort and No retractions GI: COMMON NORMALS: Normal to inspection, nondistended, normoactive bowel sounds present, Soft to palpation and non-tender PALPATION: Yes Soft to palpation Neuro: COMMON NORMALS: patient oriented x3 SENSORIUM/ORIENTATION: Yes alert Skin: COMMON NORMALS: no rashes or lesions noted GENERAL SKIN EXAM: no rashes or lesions noted Course 2 Vital Signs: Vital signs: Vital Signs Temperature 98.5 F 04/24/25 22:52 Pulse Rate 113 H 04/24/25 22:30 Respiratory Rate 18 04/24/25 22:30 Blood Pressure 93/64 04/24/25 22:30 Pulse Oximetry 94 04/24/25 22:30 Oxygen Delivery Me thod Room Air 04/24/25 22:30 MDM - Chest Pain Medical Decision Making Patient remained hemodynamically stable 30 course. He is mildly tachycardic but review of the chart shows that at baseline he is usually in the 90s or 100s. EKG shows nothing acute. Troponin is not elevated. He has frequent urination with burning and urinalysis is concerning for UTI. He was given IV ceftriaxone and will be discharged with a prescription for Ceftin and follow-up to primary care as needed. He knows that he is always welcome back in the emergency department if needed before then. Lab Data 04/24/25 19:06 04/24/25 19:06 Radiology Impressions Chest X-Ray 04/24/25 18:41 IMPRESSION: Portable chest is without acute cardiopulmonary abnormality. Laboratory Results WBC 12.31 10^3/uL (3.29-11.43) H 04/24/25 19:06 RBC 5.02 10^6/uL (3.85-5.65) 04/24/25 19:06 Hgb 14.90 g/dL (11.27-16.99) 04/24/25 19:06 Hct 46.3 % (37-53) 04/24/25 19:06 MCV 92.2 fl (82-101) 04/24/25 19:06 MCH 29.7 pg (27-33) 04/24/25 19:06 MCHC 32.2 g/dL (30-55) 04/24/25 19:06 RDW 12.5 % (12.1-15.1) 04/24/25 19:06 Plt Count 226 10^3/cmm (157-399) 04/24/25 19:06 MPV 8.7 fL (7.4-10.4) 04/24/25 19:06 Neut % (Auto) 87.7 % 04/24/25 19:06 Lymph % (Auto) 4.3 % 04/24/25 19:06 [place] % (Auto) 6.7 % 04/24/25 19:06 Eos % (Auto) 0.4 % 04/24/25 19:06 Baso % (Auto) 0.6 % 04/24/25 19:06 Neut # (Auto) 10.80 10^3/uL (1.8-7.7) H 04/24/25 19:06 Lymph # (Auto) 0.5 10^3/uL (0.8-4.8) L 04/24/25 19:06 [place] # (Auto) 0.8 10^3/uL (0.2-0.9) 04/24/25 19:06 Eos # (Auto) 0.1 10^3/uL (0.0-0.8) 04/24/25 19:06 Baso # (Auto) 0.1 10^3/uL (0.0-0.1) 04/24/25 19:06 Nucleated RBC % (auto) 0 % 04/24/25 19:06 Nucleated RBCs # 0.0 /100WBC 04/24/25 19:06 Sodium 134 mmol/L (136-145) L 04/24/25 19:06 Potassium 4.3 mmol/L (3.5-5.1) 04/24/25 19:06 Chloride 97 mmol/L (98-107) L 04/24/25 19:06 Carbon Dioxide 24 mmol/L (22-29) 04/24/25 19:06 Anion Gap 17.3 (5-19) 04/24/25 19:06 BUN 14 mg/dL (8-23) 04/24/25 19:06 Creatinine 0.9 mg/dL (0.7-1.2) 04/24/25 19:06 GFR Calculation Not Reportable 04/24/25 19:06 Glucose 129 mg/dL (65-115) H 04/24/25 19:06 Calculated Osmolality 280 mOsm/kg (285-295) L 04/24/25 19:06 Lactic Acid 1.7 mmol/L (0.5-2.2) 04/24/25 19:06 Calcium 9.3 mg/dL (8.5-10.5) 04/24/25 19:06 Total Bilirubin 0.8 mg/dL (0.15-1.2) 04/24/25 19:06 AST 20 U/L (0-40) 04/24/25 19:06 ALT 21 U/L (0-41) 04/24/25 19:06 Alkaline Phosphatase 75 U/L (40-130) 04/24/25 19:06 Troponin T Baseline 15 ng/L (0-15) 04/24/25 19:06 Troponin T 120 Minute 16.25 ng/L (0-15) H 04/24/25 21:08 Delta Troponin T 1.25 ABS# (0-10) 04/24/25 21:08 Troponin T Hi Sens 6Hr 16.10 ng/L (0-15) H 04/25/25 00:35 Troponin T Hi Sens 6Hr Delta 1.10 ng/L (0-12) 04/25/25 00:35 NT-Pro-B Natriuret Pep 94 pg/mL (0-125) 04/24/25 19:06 Total Protein 6.8 g/dL (6.6-8.7) 04/24/25 19:06 Albumin 4.4 g/dL (3.5-5.2) 04/24/25 19:06 Globulin 2.4 g/dL (1.3-4.6) 04/24/25 19:06 Urine Color Yellow (Yellow) 04/24/25 20:10 Urine Appearance Clear (CLEAR) 04/24/25 20:10 Urine pH 8.5 (5-7) A 04/24/25 20:10 Ur Specific [place] 1.016 (1.005-1.030) 04/24/25 20:10 Urine Protein 1+ (Negative) A 04/24/25 20:10 Urine Glucose (UA) Negative (Normal) 04/24/25 20:10 Urine Ketones Negative (Negative) 04/24/25 20:10 Urine Blood Non-haemolysed trace (Negative) 04/24/25 20:10 Urine Nitrate Negative (Negative) 04/24/25 20:10 Urine Bilirubin Negative (Negative) 04/24/25 20:10 Urine Urobilinogen 1.0 mg/dL (Negative) 04/24/25 20:10 Ur Leukocyte Esterase 2+ (Negative) A 04/24/25 20:10 Urine RBC 3-5 /hpf (0-2) 04/24/25 20:10 Urine WBC 51-100 /hpf (0-5) H 04/24/25 20:10 Ur Squamous Epith Cells 0-5 /hpf (0-5) 04/24/25 20:10 Amorphous Sediment Not Reportable 04/24/25 20:10 Urine Bacteria 1+ /hpf (NONE) H 04/24/25 20:10 Hyaline Casts 0.40 /lpf 04/24/25 20:10 Adenovirus (PCR) Not detected (NOT DETECT) 04/24/25 20:10 C. pneumoniae DNA (PCR) Not detected (NOT DETECT) 04/24/25 20:10 Coronavirus 229E (PCR) Not detected (NOT DETECT) 04/24/25 20:10 Human Metapneumovir PCR Not detected (NOT DETECT) 04/24/25 20:10 Influenza A (H1) PCR Not detected (NOT DETECT) 04/24/25 20:10 Influ A (H1/09) PCR Not detected (NOT DETECT) 04/24/25 20:10 Influenza A (H3) PCR Not detected (NOT DETECT) 04/24/25 20:10 Influenza Type A (PCR) Not detected (NOT DETECT) 04/24/25 20:10 Influenza Type B (PCR) Not detected (NOT DETECT) 04/24/25 20:10 M. pneumoniae (PCR) Not detected (NOT DETECT) 04/24/25 20:10 Parainfluenza 1 (PCR) Not detected (NOT DETECT) 04/24/25 20:10 Parainfluenza 2 (PCR) Not detected (NOT DETECT) 04/24/25 20:10 Parainfluenza 3 (PCR) Not detected (NOT DETECT) 04/24/25 20:10 Parainfluenza 4 (PCR) Not detected (NOT DETECT) 04/24/25 20:10 RSV Type A (PCR) Not detected (NOT DETECT) 04/24/25 20:10 RSV Type B (PCR) Not detected (NOT DETECT) 04/24/25 20:10 Entero/Rhino (PCR) Not detected (NOT DETECT) 04/24/25 20:10 SARS-CoV-2 (PCR) Not detected (NOT DETECT) 04/24/25 20:10 All radiology interpretation(s) finalized by discharge EKG Data EKG 1: Interpretation: Time?183?sinus tachycardia, rate of 126, very mild ST segment elevation of aVR with [address] depression in leads II, 3, aVF, V5, V6 likely rate related. QTc = 410 Discharge Plan Discharge Patient Disposition: Home Clinical Impression: Acute UTI Condition: Stable Prescriptions: New cefdinir 300 mg capsule 300 mg PO Q12H 10 Days Qty: 20 0RF No Action acetaminophen [Tylenol] 325 mg tablet 325 mg PO QID PRN dextroamphetamine-amphetamine 25 mg capsule,extended release 24hr PO pantoprazole 20 mg tablet,delayed release (DR/EC) 20 mg PO DAILY 30 Days Qty: 30 0RF divalproex 250 mg tablet,delayed release (DR/EC) 250 mg PO TID Qty: 90 2RF tamsulosin 0.4 mg capsule 0.4 mg PO DAILY cholecalciferol (vitamin D3) 1,250 mcg (50,000 unit) capsule 50,000 unit PO .COMPLEX Qty: 4 4RF Rx Instructions: 50,000 units orally .Weekly; galantamine 4 mg tablet 4 mg PO DAILY lisinopril 20 mg tablet See Rx Instructions .ROUTE .COMPLEX Qty: 90 0RF Dose Instruction: TAKE 1 TABLET BY MOUTH EVERY 12 HOURS Rx Instructions: TAKE 1 TABLET BY MOUTH EVERY 12 HOURS Trelegy Ellipta 100-62.5-25 mcg blister with device See Rx Instructions .ROUTE .COMPLEX Qty: 60 0RF Dose Instruction: INHALE 1 PUFF BY MOUTH DAILY Rx Instructions: INHALE 1 PUFF BY MOUTH DAILY Discharge Orders: Discharge ED (Routine); Ordered 04/25/25 Ordered By: Hieu Mace Referrals: Sujata Tuttle FNP [Primary Care Provider, Family Practice] Discharge Diet: Advance as tolerated Discharge Activity: Increase activity as tolerated Patient Instructions: Urinary Tract Infection in Men (ED) Print Language: Belizean Coding Level of Care Code ED Home Care Aide for German Nichols
[2025-04-24 19:11] VITALS: BP 138/80; PULSE 110; RESP 16; O2SAT 96
[2025-04-24 19:22] LABS: Basophils # 0.1 10^3/uL (0.0-0.1); Basophils % 0.6 %; Eosinophils # 0.1 10^3/uL (0.0-0.8); Eosinophils % 0.4 %; Hematocrit 46.3 % (37-53); Lymphocytes # 0.5 10^3/uL (0.8-4.8); Lymphocytes % 4.3 %; Mean Corpuscular HGB Conc 32.2 g/dL (30-55); Mean Corpuscular Hemoglobin 29.7 pg (27-33); Mean Corpuscular Volume 92.2 fl (82-101); Mean Platelet Volume 8.7 fL (7.4-10.4); Monocytes # 0.8 10^3/uL (0.2-0.9); Monocytes % 6.7 %; Neutrophils % 87.7 %; Nucleated Red Blood Cells % 0 %; Platelet Count 226 10^3/cmm (157-399); Red Blood Count 5.02 10^6/uL (3.85-5.65); Red Cell Distribution Width 12.5 % (12.1-15.1); White Blood Count 12.31 10^3/uL (3.29-11.43)
[2025-04-24] MEDS: acetaminophen 325 mg Tablet 650 MG PO (19:22)
--- NOTE | 2025-04-24 19:22 | ECG_ITS ---
[employer] Test Date: 2025-04-24 Pat Name: Billy Bishop Department: Room: Gender: Male [employer] Man: : 1950 Requested By: Hieu Shen Order Number: [id number] Cari MD: Von Louis M.D. Measurements Intervals [place] Rate: 111 P: 58 MT: 158 QRS: 64 QRSD: 89 T: 70 QT: 300 QTc: 409 Interpretive Statements SINUS TACHYCARDIA SEPTAL MYOCARDIAL INFARCTION , PROBABLY OLD [40+ ms Q WAVE IN V1/V2] Compared to ECG 04/24/2025 18:33:27 No significant changes Electronically Signed On 04-29-2025 11:48:58 CDT by Von Louis M.D. [email or web address]
[2025-04-24 19:30] VITALS: BP 100/61; PULSE 118; RESP 16; O2SAT 91
[2025-04-24 19:42] LABS: Lactic Sepsis W/Reflex 1.7 mmol/L (0.5-2.2)
[2025-04-24 19:43] LABS: Troponin(5th) Baseline 15 ng/L (0-15)
[2025-04-24 19:53] LABS: Alanine Aminotransferase 21 U/L (0-41); Albumin Level 4.4 g/dL (3.5-5.2); Alkaline Phosphatase 75 U/L (40-130); Anion Gap 17.3 (5-19); Aspartate Amino Transferase 20 U/L (0-40); Blood Urea Nitrogen 14 mg/dL (8-23); Calcium 9.3 mg/dL (8.5-10.5); Carbon Dioxide 24 mmol/L (22-29); Chloride 97 mmol/L (98-107); Creatinine Clr Calc Pharmacy 81.9011; Globulin 2.4 g/dL (1.3-4.6); Glucose 129 mg/dL (65-115); NT Pro B Type Natriuretic Pept 94 pg/mL (0-125); Osmolality Calculated 280 mOsm/kg (285-295); Potassium 4.3 mmol/L (3.5-5.1); Sodium 134 mmol/L (136-145); Total Bilirubin 0.8 mg/dL (0.15-1.2); Total Protein 6.8 g/dL (6.6-8.7)
[2025-04-24 20:15] LABS: Bilirubin Urine Negative (Negative); Blood Urine Non-haemolysed trace (Negative); Glucose Urine UA Negative (Normal); Ketones Urine Negative (Negative); Leukocyte Esterase Urine 2+ (Negative); Nitrate Urine Negative (Negative); Protein Urine 1+ (Negative); Specific Gravity, Urine 1.016 (1.005-1.030); Urine Appearance Clear (CLEAR); Urine Color Yellow (Yellow); pH Urine 8.5 (5-7)
[2025-04-24 20:19] LABS: Bacteria Urine 1+ /hpf; Squamous Epithelial Cell Urine 0-5 /hpf (0-5); WBC Urine 51-100 /hpf (0-5)
[2025-04-24 20:32] LABS: Add Urine Culture? Yes
[2025-04-24 21:22] VITALS: BP 108/61; PULSE 100; RESP 16; O2SAT 94
[2025-04-24] MEDS: cefTRIAXone 2,000 mg SDV 2000 MG IVP (21:29)
[2025-04-24 21:33] LABS: Troponin 5 2HR 16.25 ng/L (0-15); Troponin 5 2HR Delta 1.25 ABS# (0-10)
[2025-04-24 22:30] VITALS: BP 93/64; PULSE 113; RESP 18; O2SAT 94
[2025-04-24 22:52] VITALS: TEMP 36.9
[2025-04-25 00:02] LABS: Adenovirus Not Detected (NOT DETECT); Chlamydia Pneumoniae Not Detected (NOT DETECT); Coronavirus 229E,HKU1,NL63,OC4 Not Detected (NOT DETECT); Human Metapneumovirus Not Detected (NOT DETECT); Human Rhinovirus/Enterovirus Not Detected (NOT DETECT); Influenza A Not Detected (NOT DETECT); Influenza A H1 Not Detected (NOT DETECT); Influenza A H1-2009 Not Detected (NOT DETECT); Influenza A H3 Not Detected (NOT DETECT); Influenza B Not Detected (NOT DETECT); Mycoplasma Pneumoniae Not Detected (NOT DETECT); Parainfluenza Virus Type 1 Not Detected (NOT DETECT); Parainfluenza Virus Type 2 Not Detected (NOT DETECT); Parainfluenza Virus Type 3 Not Detected (NOT DETECT); Parainfluenza Virus Type 4 Not Detected (NOT DETECT); Respiratory Syncytial Virus A Not Detected (NOT DETECT); Respiratory Syncytial Virus B Not Detected (NOT DETECT); SARS-COV-2 Not Detected (NOT DETECT)
[2025-04-25 01:54] VITALS: BP 134/74; PULSE 114; RESP 20; O2SAT 94
== END 2025-04-25 01:56 | disposition home or self-care (01) ==
PROVIDERS: Emergency Provider Student in an Organized Health Care Education/Training Program; PCP Registered Nurse
DX: N39.0 Urinary tract infection, site not specified (principal); Z11.52 Encounter for screening for COVID-19; E11.9 Type 2 diabetes mellitus without complications; E78.2 Mixed hyperlipidemia
CPT/HCPCS: 36415; 71045; 80053; 81001; 83605; 83880; 84484; 85025; 87040; 87086; 87486; 87581; 87633; 93005; 96374; 99285; J0696; J9999

== ENCOUNTER → 2025-05-08 14:18 | Outpatient (BNVA) | payer MEDICARE, SELFPAY | PROVIDERS: PCP Registered Nurse; Referring Provider Psychiatry & Neurology Neurology; Visit Provider Psychiatry & Neurology Neurology | DX: R56.9 Unspecified convulsions (principal) | CPT/HCPCS: 95813 ==

== ENCOUNTER → 2025-05-13 13:11 | Outpatient (BNVA) | payer MEDICARE, SELFPAY | PROVIDERS: PCP Registered Nurse; Visit Provider Internal Medicine | DX: R00.2 Palpitations (principal); I10 Essential (primary) hypertension; R07.9 Chest pain, unspecified; E78.2 Mixed hyperlipidemia; F90.2 Attention-deficit hyperactivity disorder, combined type; G47.33 Obstructive sleep apnea (adult) (pediatric); Z99.89 Dependence on other enabling machines and devices | CPT/HCPCS: 99214 ==

== ENCOUNTER 2025-05-23 08:56 | Outpatient (CLI) | payer MEDICARE, SELFPAY ==
--- NOTE | 2025-05-23 14:20 | FL_ITS ---
NOTE: Report did not cross. Original Signature date and time was: 05/23/25 @ 1025 Exam: [place] barium swallow [id number] Date/Time of Exam: 05/23/2025 8:35 AM Reason For Exam: R13.10 - Dysphagia, unspecified Fluoroscopy time: 2.1 # of spot films: 0 Oropharyngeal phase of swallowing was normal. There was no indication of intrinsic esophageal mass or stricture. Motility was normal. There is some extrinsic compression along the anterior RIGHT lateral margin of the lower esophagus which may be due to left atrial prominence. No reflux or hiatal hernia was demonstrated. IMPRESSION: 1. No intrinsic esophageal mass or stricture. 2. Extensive compression on the anterior RIGHT lateral margin of the lower esophagus that may be secondary to LEFT atrial chamber enlargement. Minutes MTDD
== END 2025-05-23 08:57 | disposition home or self-care (01) ==
PROVIDERS: PCP Registered Nurse; Visit Provider Registered Nurse
DX: R13.10 Dysphagia, unspecified (principal); K22.2 Esophageal obstruction; I51.7 Cardiomegaly
CPT/HCPCS: 74220

== ENCOUNTER → 2025-05-29 13:01 | Outpatient (BNVA) | payer MEDICARE, SELFPAY | PROVIDERS: PCP Registered Nurse; Visit Provider Nurse Practitioner Family | DX: R07.9 Chest pain, unspecified (principal); I10 Essential (primary) hypertension; E78.2 Mixed hyperlipidemia; G47.33 Obstructive sleep apnea (adult) (pediatric); Z99.89 Dependence on other enabling machines and devices; F90.2 Attention-deficit hyperactivity disorder, combined type | CPT/HCPCS: 99213 ==

== ENCOUNTER → 2025-06-02 10:05 | Outpatient (BNVA) | payer MEDICARE, SELFPAY | PROVIDERS: PCP Registered Nurse; Referring Provider Registered Nurse; Visit Provider Psychiatry & Neurology Neurology | DX: R41.3 Other amnesia (principal); R56.9 Unspecified convulsions; R55 Syncope and collapse; R42 Dizziness and giddiness; R29.818 Other symptoms and signs involving the nervous system | CPT/HCPCS: 96116; 99213 ==

== ENCOUNTER 2025-06-10 11:56 | Outpatient (CLI) | payer MEDICARE, SELFPAY ==
--- NOTE | 2025-06-10 12:15 | MR_ITS ---
WS: [id number] MRI BRAIN WITH AND WITHOUT CONTRAST HISTORY: R41.3 - Other amnesia COMPARISON: 10/22/2024 TECHNIQUE: Multiplanar imaging performed through the brain with MultiHance 20 ml's IV. No acute infarcts are seen. Medrano-white matter differentiation is well preserved. Mild small vessel changes with moderate parenchymal atrophy without change since the most recent exam. No interval infarct. Mild small vessel disease in the dheeraj. Normal hippocampal formations. No atrophy. No susceptibility artifacts or prior lacunar infarcts. Ventricles and extra-axial spaces are normal. Clivus and pituitary gland are normal. Visualized posterior fossa and brainstem are also normal. Postcontrast images are negative for masses or vascular malformations. Dural venous sinuses are normal. Paranasal sinuses: Well aerated with no significant disease. Mastoid air cells: Normal. Calvarium and scalp: Normal. MR/MR head wo/w con [id number] IMPRESSION: 1. Normal diffusion imaging. No acute infarct. 2. Mild small vessel changes without progression since the most recent exam. 3. Moderate parenchymal volume loss, stable. 4. No enhancing masses or vascular malformations.
[2025-06-10] MEDS: gadobenate dimeglumine 20 mL vial IV (12:48)
== END 2025-06-10 11:57 | disposition home or self-care (01) ==
LOC: RAD 11:57
PROVIDERS: PCP Registered Nurse; Visit Provider Psychiatry & Neurology Neurology
DX: R41.3 Other amnesia (principal)
CPT/HCPCS: 70553

== ENCOUNTER → 2025-06-18 10:56 | Outpatient (BNVA) | payer MEDICARE, SELFPAY | PROVIDERS: PCP Registered Nurse; Visit Provider Registered Nurse | DX: L20.9 Atopic dermatitis, unspecified (principal); N39.0 Urinary tract infection, site not specified | CPT/HCPCS: 87086 ==

== ENCOUNTER → 2025-07-11 11:45 | Outpatient (BNVA) | payer MEDICARE, SELFPAY | PROVIDERS: PCP Registered Nurse; Visit Provider Registered Nurse | DX: E11.9 Type 2 diabetes mellitus without complications (principal); I10 Essential (primary) hypertension; N39.0 Urinary tract infection, site not specified | CPT/HCPCS: 80048; 81000; 83036; 87086 ==

== ENCOUNTER 2025-07-31 15:59 | Emergency (ER) | payer MEDICARE, SELFPAY ==
[2025-07-31] VITALS (7 sets, daily range): BP systolic 105–128; BP diastolic 52–81; PULSE 71–104; RESP 10–18; TEMP 36.6; O2SAT 95–98; BMI 32.6
--- NOTE | 2025-07-31 16:03 | XRR_ITS ---
PROCEDURE INFORMATION: Exam: XR Chest Exam date and time: 07/31/2025 4:24 PM Age: 75 years old Clinical indication: Chest wall pain; Additional info: Cp TECHNIQUE: Imaging protocol: Radiologic exam of the chest. Views: 1 view. COMPARISON: CR XR chest 1V portable [id number] 04/24/2025 7:52 PM FINDINGS: Lungs: Unremarkable. No consolidation. Pleural spaces: Unremarkable. No pleural effusion. No pneumothorax. Heart/Mediastinum: Small hiatal hernia. Diaphragm: Mild asymmetric elevation of the right hemidiaphragm. Bones/joints: Anterior cervical disc fusion hardware as well as likely posterior cervicothoracic fusion hardware partially imaged. XR/XR chest 1V portable [id number] IMPRESSION: No acute cardiopulmonary findings.
--- NOTE | 2025-07-31 16:04 | ECG_ITS ---
[employer] Test Date: 2025-07-31 Pat Name: Billy Bishop Department: Room: Gender: Male [employer]: : 1950 Requested By: Tony Lopez Order Number: [id number] Alcala MD: Von Louis M.D. Measurements Intervals [place] Rate: 83 P: 63 [place]: 175 QRS: 51 QRSD: 97 T: 81 QT: 369 QTc: 434 Interpretive Statements SINUS RHYTHM SEPTAL MYOCARDIAL INFARCTION , PROBABLY OLD [40+ ms Q WAVE IN V1/V2] Compared to ECG 04/24/2025 19:22:29 Sinus tachycardia no longer present Myocardial infarct finding still present Electronically Signed On 08-01-2025 09:11:00 CDT by Von Louis M.D. [email or web address]
--- OUTSIDE RECORDS SUMMARY | 2025-07-31 16:08 | XMS_ITS | Clinical Summary ---
Author Organization [facility] Address [address] [place] [address] Phone Care Team Providers Care Satellite Manager Name Role Phone Ori Davis APRN Primary Care Provider [phone] Allergies No known active allergies Medications HYDROcodone-dora taminophen (NORCO) 10-325 mg Tablet Take 1 Tab by mouth 2 times daily. Active diazepam (VALIUM) 10 mg tablet Take 10 mg by mouth daily at bedtime. Active DULoxetine (CYMBALTA) 60 mg Capsule, Delayed Release(E.C.) Take 60 mg by mouth daily. Active dextroamphetami ne-amphetamine (AMPHETAMINE SALT COMBO) 10 mg tablet Take 10 mg by mouth daily. Active omeprazole (PRILOSEC) 40 mg Capsule, Delayed Release(E.C.) Take 1 Cap by mouth daily. 30 Cap None 4 Active ranitidine HCl (ZANTAC) 150 mg Capsule Take 1 Cap by mouth 2 times daily. 60 Cap None 4 Active sucralfate (CARAFATE) 1 gram tablet Take 1 Tab by mouth 4 times daily before meals and at bedtime. 120 Tab None 4 Active cephALEXin (KEFLEX) 500 mg capsule Take 500 mg by mouth 4 times daily. Active neomycin-polymy lucille-dexamethaso ne (MAXITROL) 3.5mg/mL-10,000 unit/mL-0.1 % suspension 3 Drops by See Admin Instructions route 3 times daily. 3 drops in the affected ear 3 times per day. To be dispersed here. 5 mL 1 Active Active Problems No known active problems Social History Tobacco Use Types Packs/Day Years Used Date Smoking Tobacco: Never Alcohol Use Standard Drinks/Week Comments No 0 (1 standard drink = 0.6 oz pur e alcohol) Sex and Gender Information Value Date Recorded Sex Assigned at Not on file Legal Sex Male 12:16 PM [employer] Gender Identity Not on file Sexual Orientation Not on file Last Filed Vital Signs Vital Sign Reading Time Taken Comments Blood Pressure 176/102 12/13/2020 9:10 PM [employer] Pulse - - Temperature 36.1 C (97 F) 12/13/2020 9:10 PM [employer] Respiratory Rate 18 12/13/2020 9:10 PM [employer] Oxygen Saturation 97% 12/13/2020 9:10 PM [employer] Inhaled Oxygen Concentration - - Weight 89.8 kg (198 lb) 10/24/2014 12:23 PM [employer] Height 180.3 cm (5' 11 ) 10/24/2014 12:23 PM [employer] [employer] Body Mass Index 27.62 10/24/2014 12:23 PM [facility] Plan of Treatment Health Maintenance Due Date Last Done Comments DTAP/TDAP/TD VACCINES (1 - Tdap) 1969 COLORECTAL SCREENING 1995 Colorectal Cancer Screening 1995 FIT-DNA Q 3 years 1995 FIT/FOBT Q 1 year 1995 Flex Sig/CT Colonography Q 5 years 1995 PNEUMOCOCCAL VACCINE 50+ YEARS (1 of 1 - PCV) 06/23/20 00 ZOSTER VACCINE (1 of 2) 2000 RSV VACCINE (60+ or ) (1 - 1-dose 75+ series) 2025 INFLUENZA VACCINE (#1) [address] [place] [id number] MEDICARE PART A AND B [employer] MEDICARE SUPPLEMENT [facility] Care Teams Satellite Manager Relationship Specialty Start Date End Date Ori Davis APRN PCP - General Nurse Practitioner Family 12/13/20
--- OUTSIDE RECORDS SUMMARY | 2025-07-31 16:09 | XMS_ITS | Encounter Summary ---
Author Organization [facility] Address [address] [place] [address] Care Team Providers Care Quencher Operator Name Role Phone Ori Davis APRN Primary Care Provider [phone] Encounter Details Date Type Department Care Team (Late st Contact Info) Description 07/27/2021 Orders Only [facility] [address] [facility] [facility] [address] [place] [address] Katia Alex CMA Social History Tobacco Use Types Packs/Day Years Used Date Smoking Tobacco: Never Smokeless Tobacco: Never Alcohol Use Standard Drinks/Week Comments Never 0 (1 standard drink = 0.6 oz pur e alcohol) Sex and Gender Information Value Date Recorded Sex Assigned at Not on file Legal Sex Male 1:58 PM CDT Gender Identity Not on file Sexual Orientation Not on file COVID-19 Exposure Response Date Recorded In the last month, have you been in contact with someone who was confirmed or suspected to have Coronavirus / COVID-19? No / Unsure 07/27/2021 11:10 AM CDT documented as of this encounter Plan of Treatment Not on file documented as of this encounter Visit Diagnoses Not on filedocumented in this encounter Additional Health Concerns Assessment Noted Time A fall risk assessment has been complete d for the patient 07/27/2021 11:48 AM CDT documented as of this encounter Care Teams Quencher Operator Relationship Specialty Start Date End Date Ori Davis APRN [address] [place] [address] PCP - General Family Medicine 11/22/21 documented as of this encounter
--- OUTSIDE RECORDS SUMMARY | 2025-07-31 16:09 | XMS_ITS | Clinical Summary ---
Author Organization [facility] Address [address] [place] [address] Care Team Providers Care Auditor Supervisor Name Role Phone Ori Davis APRN Primary Care Provider [phone] Allergies No known active allergies Medications albuterol (PROAIR HFA) 90 mcg/puff inhl inhaler INHALE 1 PUFF Q 6 H PRN SOB OR WHEEZING Active naproxen (NAPROSYN) 500 MG tablet TK 1 T PO BID Active pantoprazole (PROTONIX) 40 MG EC tablet TAKE 1 TABLET BY MOUTH DAILY 1 Active divalproex (DEPAKOTE) 250 MG 24 hr tabletIndication s:Nonintractable headache, unspecified chronicity pattern, unspecified headache type TAKE 1 TABLET(250 MG) BY MOUTH DAILY 90 tablet 1 2 Active fluticasone propionate (FLONASE) 50 mcg/actuation nasal spray SHAKE LIQUID AND USE 2 SPRAYS IN EACH NOSTRIL EVERY DAY 2 Active dextroamphetamin e-amphetamine (AdderalL) 20 mg tablet Take 20 mg by mouth in the morning. Take one tablet by mouth daily in the morning.. Active lisinopriL (PRINIVIL) 10 MG tablet Take 10 mg by mouth in the morning. Active tamsulosin (FLOMAX) 0.4 mg 24 hr capsule Take 0.4 mg by mouth every evening. Active galantamine (RAZADYNE) 4 mg tabletIndication s:Alzheimer disease (HCC) TAKE 1 TABLET BY MOUTH DAILY FOR DEMENITA 90 tablet 6 5 Active escitalopram (LEXAPRO) 20 mg tabletIndication s:Depression with anxiety Take 1 tablet (20 mg total) by mouth in the morning. 30 tablet 6 5 05/01/20 26 Active Active Problems Problem Noted Date Diagnosed Date Nonintractable headache 05/23/2022 Depression 05/23/2022 Memory problem 05/23/2022 Obstructive sleep apnea (adult) (pediatric) 02/2021 Assessment & Plan (03/30/2021 5:28 PM CDT): Encouraged patient to be more compliant with use of CPAP. Schedule retitration of nasal CPAP. Patient will follow-up in the clinic after this study is completed. Excessive daytime sleepiness 03/29/2021 Assessment & Plan (03/30/2021 5:16 PM CDT): Suspect secondary to lack of compliance with CPAP. Schedule tentative MSLT following CPAP titration. Narcolepsy 03/29/2021 Headache 03/29/2021 Encounters Date Type Department Care Team Description 05/01/2025 10:15 AM CDT Office Visit [address] [address] Conor Shaw, PMROLA Depression with anxiety (Primary Dx); Nonintractable headache, unspecified chronicity pattern, unspecified headache type; Mood disorder (HCC); Alzheimer disease (HCC) 05/01/2025 Travel from Last 3 Months Family History Medical History Relation Name Comments Migraines Brother Diabetes Mother Relation Name Status Comments Brother Mother Social History Tobacco Use Types Packs/Day Years Used Date Smoking Tobacco: Never Smokeless Tobacco: Never Tobacco Cessation:Counseling Given: Yes Alcohol Use Standard Drinks/Week Comments Never 0 (1 standard drink = 0.6 oz pur e alcohol) PHQ-2 Answer Date Recorded PHQ-2 Score 2 11/30/2023 Sex and Gender Information Value Date Recorded Sex Assigned at Not on file Legal Sex Male 1:58 PM CDT Gender Identity Not on file Sexual Orientation Not on file Last Filed Vital Signs Vital Sign Reading Time Taken Comments Blood Pressure 154/83 05/01/2025 10:18 AM CDT Pulse 100 05/01/2025 10:18 AM CDT Temperature 36.8 C (98.2 F) 02/01/2024 9:56 AM NET DEVELOPER Respiratory Rate 18 05/23/2022 10:35 AM CDT Oxygen Saturation - - Inhaled Oxygen Concentration - - Weight 98 kg (216 lb) 05/01/2025 10:18 AM CDT Height 172.7 cm (5' 8 ) 05/01/2025 10:18 AM CDT Body Mass Index 32.84 05/01/2025 10:18 AM CDT Plan of Treatment Health Maintenance Due Date Last Done Comments Medicare Annual Wellness 1950 Colonoscopy 1995 Pneumococcal Vaccine: 50+ Ye ars (1 of 1 - PCV) 2000 Shingrix (ZOSTER RECOMBINANT ) (1 of 2) 2000 RSV 60+ (1 - 1-dose 75+ series) 2025 Influenza Vaccination (#1) 2025 Td, Tdap Vaccines Adult 02/22/2027 02/22/2017 HIB Vaccines Aged Out No longer eligi ble based on patient's age to complete this topic HPV Vaccines Aged Out No longer eligi ble based on patient's age to complete this topic Hepatitis A Vaccines Aged Out No long er eligible based on patient's age to complete this topic Hepatitis B Vaccines Aged Out No long er eligible based on patient's age to complete this topic IPV Vaccines Aged Out No longer eligi ble based on patient's age to complete this topic Meningococcal Vaccines Aged Out No lo nger eligible based on patient's age to complete this topic RSV Mab Nirsevimab (Beyfortu s) <20 months Aged Out No longer eligible b ased on patient's age to complete this topic Rotavirus Vaccines Aged Out No longer eligible based on patient's age to complete this topic Insurance [facility] MEDICARE ADVANTAGE Care Teams Auditor Supervisor Relationship Specialty Start Date End Date Ori Davis APRN [address] [facility] [address] [place] [address] PCP - General Family Medicine 11/22/21
--- OUTSIDE RECORDS SUMMARY | 2025-07-31 16:09 | XMS_ITS | Clinical Summary ---
Author Organization [facility] Address [address] Cordon: Epic Prelude ADT [place] [address] Care Team Providers Care Street Roller Engineer Name Role Phone Ori Davis APRN Primary Care Provider [phone] Allergies No known active allergies Medications cephALEXin (KEFLEX) 500 mg capsule Take 500 mg by mouth 4 times daily. 1 Active neomycin-polymy lucille-dexAMETHaso ne (MAXITROL) 3.5mg/mL-10,000 unit/mL-0.1 % suspension 3 Drops by See Admin Instructions route 3 times daily. 3 drops in the affected ear 3 times per day.To be dispersed here. 5 mL 0 1 Active divalproex (DEPAKOTE) 250 mg Delayed Release tablet Take 250 mg by mouth 3 times daily. 2 Active ESCITALOPRAM OXALATE ORAL Take 20 mg by mouth daily. 2 Active DULoxetine (CYMBALTA) 60 mg Capsule, Delayed Release(E.C.) Take 60 mg by mouth daily. Active Active Problems Problem Noted Date Diagnosed Date Lumbar radiculopathy 10/12/2023 Meralgia paresthetica of right side 10/12/2023 Social History Tobacco Use Types Packs/Day Years Used Date Smoking Tobacco: Never Alcohol Use Standard Drinks/Week Comments No 0 (1 standard drink = 0.6 oz pur e alcohol) Sex and Gender Information Value Date Recorded Sex Assigned at Not on file Legal Sex Male 1:09 AM INSURANCE CLAIMS SPECIALIST Gender Identity Not on file Sexual Orientation Not on file Last Filed Vital Signs Vital Sign Reading Time Taken Comments Blood Pressure 151/81 10/12/2023 1:04 PM INSURANCE CLAIMS SPECIALIST Pulse 91 10/12/2023 1:04 PM INSURANCE CLAIMS SPECIALIST Temperature 36.4 C (97.5 F) 10/12/2023 1:04 PM INSURANCE CLAIMS SPECIALIST Respiratory Rate 18 10/12/2023 1:04 PM INSURANCE CLAIMS SPECIALIST Oxygen Saturation 95% 10/12/2023 1:04 PM INSURANCE CLAIMS SPECIALIST Inhaled Oxygen Concentration - - Weight 104.9 kg (231 lb 3.2 oz) 10/12/2023 1:04 PM INSURANCE CLAIMS SPECIALIST Height 172.7 cm (5' 8 ) 10/12/2023 1:04 PM INSURANCE CLAIMS SPECIALIST Body Mass Index 35.15 10/12/2023 1:04 PM INSURANCE CLAIMS SPECIALIST Plan of Treatment Health Maintenance Due Date [...] series) 2025 INFLUENZA VACCINE (#1) [address] [place] [id number] [place] [id number] Roller Engineer Relationship Specialty Start Date End Date Ori Davis APRN [facility] [id number] PCP - General Nurse Practitioner Family 12/13/20
--- OUTSIDE RECORDS SUMMARY | 2025-07-31 16:09 | XMS_ITS | Encounter Summary ---
Author Organization [facility] Address [address] [place] [address] Care Team Providers Care Sap Basis Architect Name Role Phone Ori Davis APRN Primary Care Provider [phone] Encounter Details Date Type Department Care Team (Late st Contact Info) Description 11/22/2021 Orders Only [facility] [address] [place] [address] Michael Munoz MD [address] [facility] [address] [place], [place] [address] Social History Tobacco Use Types Packs/Day Years [...] have Coronavirus / COVID-19? No / Unsure 11/22/2021 10:28 AM HOSPICE SOCIAL WORKER documented as of this encounter Plan of Treatment Not on file documented as of this encounter Visit Diagnoses Not on filedocumented in this encounter Additional Health Concerns Assessment Noted Time A fall risk assessment has been complete d for the patient 11/22/2021 10:39 AM HOSPICE SOCIAL WORKER documented as of this encounter Care Teams Sap Basis Architect Relationship Specialty Start Date End Date Ori Davis APRN [address] [facility] [address] [place] [address] PCP - General Family Medicine 11/22/21 documented as of this encounter
--- OUTSIDE RECORDS SUMMARY | 2025-07-31 16:09 | XMS_ITS | Encounter Summary ---
Author Organization [facility] Address [address] [place] [address] Care Team Providers Care Senior Sas Developer Name Role Phone Ori Davis APRN Primary Care Provider [phone] Reason for Visit * Reason Comments Med Refill Encounter Details Date Type Department Care Team (Late st Contact Info) Description 03/02/2024 Refill [facility] [place] [facility] [address] [facility] [address] [place] [id number] Conor Shaw Gerard, PMHNP [address] [place] [address] Mood disorder (HCC) Social History Tobacco Use Types Packs/Day Years [...] on file Sexual Orientation Not on file documented as of this encounter Miscellaneous Notes * Telephone Encounter - Criselda Ireland CMA - 03/04/2024 4:21 PM CDT Script sent 01/31 with 1+2 refills documented in this encounter Plan of Treatment Not on file documented as of this encounter Visit Diagnoses Diagnosis Mood disorder (HCC) Unspecified episodic mood disorder documented in this encounter Additional Health Concerns Health Status Noted Date Alive and well 02/01/2024 Assessment Noted Time A fall risk assessment has been complete d for the patient 02/01/2024 9:57 AM EAR NOSE THROAT SURGEON documented as of this encounter Care Teams Senior Sas Developer Relationship Specialty Start Date End Date Ori Davis APRN [address] [address] PCP - General Family Medicine 11/22/21 documented as of this encounter
--- OUTSIDE RECORDS SUMMARY | 2025-07-31 16:09 | XMS_ITS | Encounter Summary ---
Author Organization [facility] Address [address] [place] [address] Care Team Providers Care Motion Study Analyst Name Role Phone Ori Davis APRN Primary Care Provider [phone] Reason for Referral * MRI/CAT/PET Scan (Routine) - Closed Specialty Diagnoses / Procedures Referred By Evan vergara Referred To Contact Radiology Diagnoses Memory loss Procedures MRI brain without contrast Michael Munoz MD [address] [place] [address] [address] [place] [address] Phone: tel: fax: Referral ID Status Reason Start Date Expiration Date Visits Re quested Visits Authorized [id number] Closed 05/26/2022 07/24/2022 1 1 Encounter Details Date Type Department Care Team (Late st Contact Info) Description 05/23/2022 Orders Only [facility] [address] [place] [address] [address] [place] [address] Katia Alex, CADY Memory loss (Primary Dx) Social History Tobacco Use Types Packs/Day Years Used Date Smoking Tobacco: Never Smokeless Tobacco: Never Alcohol Use Standard Drinks/Week Comments Never 0 (1 standard drink = 0.6 oz pur e alcohol) PHQ-2 Answer Date Recorded PHQ-2 Score 0 05/23/2022 Sex and Gender Information Value Date Recorded Sex Assigned at Not on file Legal Sex Male 1:58 PM CDT Gender Identity Not on file Sexual Orientation Not on file COVID-19 Exposure Response Date Recorded In the last 10 days, have yo u been in contact with someone who was confirmed or suspected to have Coronavirus/COVID-19? No / Unsure 05/23/2022 10:35 AM CDT documented as of this encounter Plan of Treatment Not on file documented as of this encounter Results * MRI brain without contrast (06/07/2022 11:42 AM CDT) Anatomical Region Laterality Modality Head and Neck N/A Magnetic Resonan ce Narrative 06/07/2022 11:57 AM CDT EXAM: Brain MRI without contrast HISTORY: Memory loss. TECHNIQUE: Multiplanar and multisequence MRI of the brain without the administration of intravenous contrast. COMPARISON: Brain CT dated 07/03/2019. FINDINGS: There is no intracranial mass. There is no acute ischemic infarct or acute intracranial hemorrhage. There is mild cerebral parenchymal volume loss. There is no hydrocephalus. Few foci of T2/FLAIR hyperintense signal are present in the subcortical white matter, most commonly seen in chronic white matter microvascular ischemic changes. The basilar cisterns are patent. The posterior fossa structures are within normal limits. Mild mucosal thickening is noted in the ethmoid air cells and bilateral maxillary sinuses. The mastoid air cells are clear. The orbits are within normal limits. No calvarial abnormality is identified. IMPRESSION: 1. No acute intracranial findings. 2. Mild cerebral atrophy. 3. Mild chronic white matter microvascular ischemic changes. Procedure Note Mehul Gifford MD - 06/07/2022 EXAM: Brain MRI without contrast HISTORY: Memory loss. TECHNIQUE: Multiplanar and multisequence MRI of the brain without theadministration of intravenous contrast. COMPARISON: Brain CT dated 07/03/2019. FINDINGS: There is no intracranial mass. There is no acute ischemic infarct or acute intracranial hemorrhage. There is mild cerebral parenchymal volume loss. There is nohydrocephalus. Few foci of T2/FLAIR hyperintense signal are present in the subcorticalwhite matter, most commonly seen in chronic white matter microvascularischemic changes. The basilar cisterns are patent. The posterior fossa structures arewithin normal limits. Mild mucosal thickening is noted in the ethmoid air cells and bilateralmaxillary sinuses. The mastoid air cells are clear. The orbits are within normal limits. No calvarial abnormality is identified. IMPRESSION: 1. No acute intracranial findings. 2. Mild cerebral atrophy. 3. Mild chronic white matter microvascular ischemic changes. us Michael Munoz MD IMG MRI ORDERABLES Final Res ult documented in this encounter Visit Diagnoses Diagnosis Memory loss- Primary documented in this encounter Additional Health Concerns Assessment Noted Time A fall risk assessment has been complete d for the patient 05/23/2022 10:36 AM CDT documented as of this encounter Care Teams Motion Study Analyst Relationship Specialty Start Date End Date Ori Davis, SNAP ATTACHER [address] [address] PCP - General Family Medicine 11/22/21 documented as of this encounter
--- NOTE | 2025-07-31 16:31 | ED_ITS ---
Documented by User: Tony Lopez MD 07/31/25 16:39 HPI - Chest Pain 2 General: Chief Complaint: Chest Pain Stated Complaint: dizziness, chest tightness, pressure Time Seen by Provider: 07/31/25 16:03 Source: patient Mode of arrival: ambulatory Limitations: no limitations History of Present Illness: 75-year-old male states has been having chest pains been going on for 6 months. He states he has been having pressure type pains along with some lightheadedness specially when he stands. He states he has pain currently it has been like the pain he has been having. Looking through his records he did have an MRI in May it was normal he had a nuclear med stress test in March that was normal. He denies any worse improved factors denies any shortness of breath or fever Associated symptoms: Deny abdominal pain, dyspnea, fever(s), nausea or vomiting Related Data Home Medications ?Medication ?Instructions ?Recorded ?Confirmed galantamine 4 mg tablet 4 mg PO DAILY 02/06/2407/11 dextroamphetamine-amphetamine ER PO 10/08/24 07/11/25 25 mg 24hr capsule,extend release Previous Rx's ?Medication ?Instructions ?Recorded divalproex 250 mg tablet,delayed 250 mg PO TID #90 tab s 01/18/23 release cholecalciferol (vitamin D3) 1,250 50,000 unit PO .COM PLEX #4 caps 01/02/25 mcg (50,000 unit) capsule fluticasone fur. 100 mcg-umeclid See Rx Instructions . Route 03/24/25 62.5 mcg-vilant 25 mcg .COMPLEX #60 ea inhalat.powder (Trelegy Ellipta) metoprolol succinate 25 mg 12.5 mg (1/2 x 25 mg) PO DA SHAKILA #90 05/29/25 tablet,extended release 24 hr tabs tamsulosin 0.4 mg capsule 0.4 mg PO DAILY 90 days #90 caps 06/10/25 ketoconazole 2 % topical foam 1 applic topical BID 4 w eeks #50 06/18/25 grams aspirin 81 mg tablet,delayed 81 mg PO DAILY #30 tabs 0 07/31/25 release lisinopril 20 mg tablet 10 mg (1/2 x 20 mg) .Route D AILY 07/31/25 #90 tabs pantoprazole 40 mg tablet,delayed 40 mg PO DAILY #30 t abs 07/31/25 release Allergies Allergy/AdvReac Type Severity Reaction Status Date / Time No Known Allergies Allergy Verified 07/11/25 09:26 Review of Systems 2 Const: Denies: fever(s), chills, body aches or change in appetite ENMT: Denies: throat pain or dental pain Card: Reports: chest pain Resp: Denies: dyspnea GI: Denies: abdominal pain, nausea, vomiting or diarrhea Musc: Denies: neck pain or back pain Skin/Breast: Denies: rash Neuro: Denies: headache(s) PFSH ED 2 PFSH: Medical History Prostatic hypertrophy CRLD (chronic restrictive lung disease) Chronic migraine without aura, intractable, with status migrainosus Mild cognitive impairment with memory loss Osteoarthritis of left knee Type 2 diabetes mellitus Environmental and seasonal allergies Mixed hyperlipidemia Poor dentition Rotator cuff arthropathy of right shoulder Cerebellar ataxia Generalized spasm Arthritis of right shoulder region Arthritis of knee, left Major depressive disorder, recurrent, moderate Chronic post-traumatic stress disorder 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 Vitamin D deficiency Encounter for long-term opiate analgesic use Postlaminectomy syndrome of lumbosacral region Chronic narcotic use Low back pain Chronic thoracic spine pain Failed back syndrome, lumbosacral Fusion of spine, thoracic region Essential hypertension Obstructive sleep apnea on CPAP Pseudarthrosis following spinal fusion ADHD (attention deficit hyperactivity disorder), combined type PTSD (post-traumatic stress disorder) Bilateral carpal tunnel syndrome 07/17/2019 [facility] BUE Chronic bilateral low back pain with bilateral sciatica Auditory processing disorder Unspecified dementia without behavioral disturbance Thoracic spinal stenosis Surgical History S/P spinal surgery 2009 Dr. Jose Roach [place], [place]: Multilevel cervical laminectomy/fusion/fixation. Dr. Jose Roach [place], [place] Patient reports C2-C3, C3-C4, C4-C5 Laminectomy/fusion/fixation 2013 Dr. Jose Mejía [place], [place] T1-T4 laminectomy/fusion/fixation 2015 Dr. Jose Roach [place]. L3-L4, L4-L5, L5-S1, S1-S2 posterior laminectomy/fusion/fixation and bilateral iliac bones 06/06/19 Dr Thomas irrigation and debridement of posterior thoracic surgical wound dehiscence related to a previous thoracic spinal cord stimulator placement 07/24/2019 Dr. Gricelda Thomas: Thoracic laminotomies with removal of intraspinal, epidural paddle electrode arrays. Removal of subcutaneous programmable pulse generator. Back Surgery Attributes: Inpatient, Post-op complications, Bilateral. Comments: 2013: L3-4 and maybe one other. 2016: L2-3, L3-4, L4-5, and L5-S1 and bilateral sacroiliac fusion. Cervical fusion revision, Dr Chidi Roach, [place], [place], 2010 Dr Thomas 01/17/19 Thoracic laminotomy with placement of intraspinal, epidural paddle electrode arrays and placement of subcutaneous programmable pulse generator. Neck Surgery *Promoted* Attributes: Date: 2009, Inpatient, Post-op complications, Bilateral. Comments: 2010: C2-3, C3-4 and C4-5 discectomy and fusion 2010: revision of fusion due to failure at C3-4 and C4-5 2012: Fusion from C2 to T4. SCS Removal 2019 Spinal Cord Stimulator Trial -Dr. Clemons 11/02/18 11/02/2018 - 11/06/2018 100% symptom benefit Status post laminectomy with spinal fusion S/P knee surgery History of facial surgery Family History Mother Diabetes Social History Smoking and tobacco/nicotine status: never used tobacco/nicotine Alcohol intake: former Substance/Drug Use: never Household members: significant other Marital status: Single Current occupational status: retired Physical Exam 2 Const: COMMON NORMALS: no acute distress, patient oriented x3 and healthy appearing HENMT: COMMON NORMALS: normocephalic and atraumatic HEAD & SCALP: n ormocephalic and atraumatic Eye: COMMON NORMALS: Equal, round and reactive pupils present and EOMs intact bilaterally PUPIL: Yes Equal, round and reactive pupils present Neck/C-Spine: COMMON NORMALS: full ROM and supple Chest: COMMONS NORMALS: normal inspection of the chest and normal palpation of entire chest wall Resp: COMMON NORMALS: normal respiratory effort, No retractions, No use of accessory muscles and clear to auscultation bilaterally AUSCULTATION: clear to auscultation bilaterally Cardio: COMMON NORMALS: regular rate, regular rhythm and No murmurs present (Cardio) RATE: regular rate RHYTHM: regular rhythm GI: COMMON NORMALS: Normal to inspection, nondistended, normoactive bowel sounds present, Soft to palpation, non-tender and no masses PALPATION: Yes Soft to palpation Extremity: COMMON NORMALS: normal to inspection and full ROM Neuro: COMMON NORMALS: patient oriented x3, moves all extremities and no focal motor deficits Psych: COMMON NORMALS: mental status grossly normal, Normal thought process present and cooperative THOUGHT PROCESS: Normal thought process present Skin: COMMON NORMALS: no rashes or lesions noted and no wounds GENERAL SKIN EXAM: no rashes or lesions noted Course 2 Vital Signs: Vital signs: Vital Signs Temperature 97.8 F 07/31/25 16:00 Pulse Rate 71 07/31/25 18:18 Respiratory Rate 18 07/31/25 18:00 Blood Pressure 105/81 07/31/25 18:18 Pulse Oximetry 98 07/31/25 18:18 Oxygen Delivery Me thod Room Air 07/31/25 17:07 MDM - Chest Pain Medical Decision Making Patient presents here with chest pain has been going on for months he has had a recent Shayla scan that was normal patient's care turned over to Dr. Barney pending labs EKG showed no acute abnormalities Medical Records I reviewed the patient's medical records. Lab Data I reviewed the patient's lab results. 07/31/25 16:32 07/31/25 16:32 Radiology Impressions Chest X-Ray 07/31/25 16:03 IMPRESSION: No acute cardiopulmonary findings. Laboratory Results WBC 6.61 10^3/uL (3.29-11.43) 07/31/25 16:32 RBC 4.38 10^6/uL (3.85-5.65) 07/31/25 16:32 Hgb 13.10 g/dL (11.27-16.99) 07/31/25 16:32 Hct 41.0 % (37-53) 07/31/25 16:32 MCV 93.6 fl (82-101) 07/31/25 16:32 MCH 29.9 pg (27-33) 07/31/25 16:32 MCHC 32.0 g/dL (30-55) 07/31/25 16:32 RDW 13.9 % (12.1-15.1) 07/31/25 16:32 Plt Count 262 10^3/cmm (157-399) 07/31/25 16:32 MPV 8.8 fL (7.4-10.4) 07/31/25 16:32 Neut % (Auto) 55.4 % 07/31/25 16:32 Lymph % (Auto) 31.8 % 07/31/25 16:32 Garvin % (Auto) 5.9 % 07/31/25 16:32 Eos % (Auto) 4.8 % 07/31/25 16:32 Baso % (Auto) 1.5 % 07/31/25 16:32 Neut # (Auto) 3.66 10^3/uL (1.8-7.7) 07/31/25 16:32 Lymph # (Auto) 2.1 10^3/uL (0.8-4.8) 07/31/25 16:32 Garvin # (Auto) 0.4 10^3/uL (0.2-0.9) 07/31/25 16:32 Eos # (Auto) 0.3 10^3/uL (0.0-0.8) 07/31/25 16:32 Baso # (Auto) 0.1 10^3/uL (0.0-0.1) 07/31/25 16:32 Nucleated RBC % (auto) 0 % 07/31/25 16:32 Nucleated RBCs # 0.0 /100WBC 07/31/25 16:32 PT 12.90 SECONDS (12.1-14.9) 07/31/25 16:32 INR 0.91 (0.8-1.2) 07/31/25 16:32 Sodium 139 mmol/L (136-145) 07/31/25 16:32 Potassium 4.5 mmol/L (3.5-5.1) 07/31/25 16:32 Chloride 103 mmol/L (98-107) 07/31/25 16:32 Carbon Dioxide 23 mmol/L (22-29) 07/31/25 16:32 Anion Gap 17.5 (5-19) 07/31/25 16:32 BUN 15 mg/dL (8-23) 07/31/25 16:32 Creatinine 0.9 mg/dL (0.7-1.2) 07/31/25 16:32 GFR Calculation Not Reportable 07/31/25 16:32 Glucose 130 mg/dL (65-115) H 07/31/25 16:32 POC Glucose 162 mg/dL (70-110) H 07/31/25 16:43 Calculated Osmolality 291 mOsm/kg (285-295) 07/31/25 16:32 Calcium 9.2 mg/dL (8.5-10.5) 07/31/25 16:32 Total Bilirubin 0.4 mg/dL (0.15-1.2) 07/31/25 16:32 AST 18 U/L (0-40) 07/31/25 16:32 ALT 18 U/L (0-41) 07/31/25 16:32 Alkaline Phosphatase 64 U/L (40-130) 07/31/25 16:32 Troponin T Baseline 15 ng/L (0-15) 07/31/25 16:32 Total Protein 6.6 g/dL (6.6-8.7) 07/31/25 16:32 Albumin 4.1 g/dL (3.5-5.2) 07/31/25 16:32 Globulin 2.5 g/dL (1.3-4.6) 07/31/25 16:32 Lipase 38 U/L (13-60) 07/31/25 16:32 All radiology interpretation(s) finalized by discharge EKG Data EKG 1: I personally reviewed and interpreted this EKG as follows: EKG interpretation date: 07/31/25 EKG interpretation time: 16:04 Interpretation: nsr hr [address] or t wave abnormalities qrs 97 qtc 409 Discharge Plan Discharge Patient Disposition: Home Clinical Impression: Orthostasis, Atypical chest pain Condition: Stable Prescriptions: New aspirin 81 mg tablet,delayed release (DR/EC) 81 mg PO DAILY Qty: 30 0RF pantoprazole 40 mg tablet,delayed release (DR/EC) 40 mg PO DAILY Qty: 30 0RF Changed lisinopril 20 mg tablet 10 mg .ROUTE DAILY Qty: 90 0RF Rx Instructions: 20 mg daily; No Action dextroamphetamine-amphetamine 25 mg capsule,extended release 24hr PO tamsulosin 0.4 mg capsule 0.4 mg PO DAILY 90 Days Qty: 90 1RF divalproex 250 mg tablet,delayed release (DR/EC) 250 mg PO TID Qty: 90 2RF cholecalciferol (vitamin D3) 1,250 mcg (50,000 unit) capsule 50,000 unit PO .COMPLEX Qty: 4 4RF Rx Instructions: 50,000 units orally .Weekly; metoprolol succinate 25 mg tablet extended release 24 hr 12.5 mg PO DAILY Qty: 90 0RF Rx Instructions: Hold if heart rate less than 60 galantamine 4 mg tablet 4 mg PO DAILY Trelegy Ellipta 100-62.5-25 mcg blister with device See Rx Instructions .ROUTE .COMPLEX Qty: 60 0RF Dose Instruction: INHALE 1 PUFF BY MOUTH DAILY Rx Instructions: INHALE 1 PUFF BY MOUTH DAILY ketoconazole 2 % foam 1 applic topical BID 28 Days Qty: 50 0RF Discharge Orders: Discharge ED (Routine); Ordered 07/31/25 Ordered By: Dayne Barney Referrals: Sujata Tuttle FNP [Primary Care Provider, Family Practice] Discharge Diet: Usual diet Discharge Activity: Limit activity as instructed Patient Instructions: Opioid Safety, Pain Management, Patient Portal & Zuleika Instructions Activity Restrictions/Additional Instructions: Thank you for choosing [facility] for your healthcare needs today. It is very important that you follow up as instructed or that you return to the Emergency Department should you have concerns or if your condition changes or worsens in any way. Emergency department visits are focused on emergent conditions, in some cases you may require further evaluation on an outpatient basis. You were seen in the emergency room with complaints of lightheaded and dizziness chest discomfort. Your previous cardiac stress test is negative. You demonstrated that your lightheadedness dizziness is worse when you bend over and suddenly stand up this caused by orthostasis bodies ability to adjust your blood pressure to accommodate for posture is blunted by your blood pressure medications this is not unusual with the medication drawn recommend you decrease your lisinopril to 10 mg daily. Also recommend taking aspirin daily will start you on pantoprazole 40 mg daily and have you follow-up with cardiology. (Please note that included in your discharge packet is information concerning opioid safety and pain management. This information is given to all patients were discharged from the ER regardless of their discharge diagnosis or the medicines they usually take or are prescribed.) Print Language: Macanese Sign Out Sign Out Data: Patient Sign Out occurred on 07/31/25 at 17:06. Patient's care was discussed, and care was transferred from Tony Lopez MD to Dayne Barney DO. 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 Documented by User: Dayne Barney DO 07/31/25 19:51 HPI - Chest Pain 2 General: Chief Complaint: Chest Pain Stated Complaint: dizziness, chest tightness, pressure Time Seen by Provider: 07/31/25 16:03 Related Data Home Medications ?Medication ?Instructions ?Recorded ?Confirmed galantamine 4 mg tablet 4 mg PO DAILY 02/06/2407/11 dextroamphetamine-amphetamine ER PO 10/08/24 07/11/25 25 mg 24hr capsule,extend release Previous Rx's ?Medication ?Instructions ?Recorded divalproex 250 mg tablet,delayed 250 mg PO TID #90 tab s 01/18/23 release cholecalciferol (vitamin D3) 1,250 50,000 unit PO .COM PLEX #4 caps 01/02/25 mcg (50,000 unit) capsule fluticasone fur. 100 mcg-umeclid See Rx Instructions . Route 03/24/25 62.5 mcg-vilant 25 mcg .COMPLEX #60 ea inhalat.powder (Trelegy Ellipta) metoprolol succinate 25 mg 12.5 mg (1/2 x 25 mg) PO DA SHAKILA #90 05/29/25 tablet,extended release 24 hr tabs tamsulosin 0.4 mg capsule 0.4 mg PO DAILY 90 days #90 caps 06/10/25 ketoconazole 2 % topical foam 1 applic topical BID 4 w eeks #50 06/18/25 grams aspirin 81 mg tablet,delayed 81 mg PO DAILY #30 tabs 0 07/31/25 release lisinopril 20 mg tablet 10 mg (1/2 x 20 mg) .Route D AILY 07/31/25 #90 tabs pantoprazole 40 mg tablet,delayed 40 mg PO DAILY #30 t abs 07/31/25 release Allergies Allergy/AdvReac Type Severity Reaction Status Date / Time No Known Allergies Allergy Verified 07/11/25 09:26 [facility] ED 2 PFSH: Medical History Prostatic hypertrophy CRLD (chronic restrictive lung disease) Chronic migraine without aura, intractable, with status migrainosus Mild cognitive impairment with memory loss Osteoarthritis of left knee Type 2 diabetes mellitus Environmental and seasonal allergies Mixed hyperlipidemia Poor dentition Rotator cuff arthropathy of right shoulder Cerebellar ataxia Generalized spasm Arthritis of right shoulder region Arthritis of knee, left Major depressive disorder, recurrent, moderate Chronic post-traumatic stress disorder 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 Vitamin D deficiency Encounter for long-term opiate analgesic use Postlaminectomy syndrome of lumbosacral region Chronic narcotic use Low back pain Chronic thoracic spine pain Failed back syndrome, lumbosacral Fusion of spine, thoracic region Essential hypertension Obstructive sleep apnea on CPAP Pseudarthrosis following spinal fusion ADHD (attention deficit hyperactivity disorder), combined type PTSD (post-traumatic stress disorder) Bilateral carpal tunnel syndrome 07/17/2019 NCS BUE Chronic bilateral low back pain with bilateral sciatica Auditory processing disorder Unspecified dementia without behavioral disturbance Thoracic spinal stenosis Surgical History S/P spinal surgery 2009 Dr. Jose Roach [place], [place]: Multilevel cervical laminectomy/fusion/fixation. Dr. Jose Roach [place], [place] Patient reports C2-C3, C3-C4, C4-C5 Laminectomy/fusion/fixation 2013 Dr. Jose Mejía [place], [place] T1-T4 laminectomy/fusion/fixation 2015 Dr. Jose Roach [place], [place]. L3-L4, L4-L5, L5-S1, S1-S2 posterior laminectomy/fusion/fixation and bilateral iliac bones 06/06/19 Dr Thomas irrigation and debridement of posterior thoracic surgical wound dehiscence related to a previous thoracic spinal cord stimulator placement 07/24/2019 Dr. Gricelda Thomas: Thoracic laminotomies with removal of intraspinal, epidural paddle electrode arrays. Removal of subcutaneous programmable pulse generator. Back Surgery Attributes: Inpatient, Post-op complications, Bilateral. Comments: 2014: L3-4 and maybe one other. 2016: L2-3, L3-4, L4-5, and L5-S1 and bilateral sacroiliac fusion. Cervical fusion revision, Dr Chidi Roach, [place], [place], 2010 Dr Thomas 01/17/19 Thoracic laminotomy with placement of intraspinal, epidural paddle electrode arrays and placement of subcutaneous programmable pulse generator. Neck Surgery *Promoted* Attributes: Date: 2009, Inpatient, Post-op complications, Bilateral. Comments: 2010: C2-3, C3-4 and C4-5 discectomy and fusion 2010: revision of fusion due to failure at C3-4 and C4-5 2011: Fusion from C2 to T4. SCS Removal 2019 Spinal Cord Stimulator Trial -Dr. Clemons 11/02/18 11/02/2018 - 11/06/2018 100% symptom benefit Status post laminectomy with spinal fusion S/P knee surgery History of facial surgery Family History Mother Diabetes Social History Smoking and tobacco/nicotine status: never used tobacco/nicotine Alcohol intake: former Substance/Drug Use: never Household members: significant other Marital status: Single Current occupational status: retired Course 2 Vital Signs: Vital signs: Vital Signs Temperature 97.8 F 07/31/25 16:00 Pulse Rate 71 07/31/25 18:18 Respiratory Rate 18 07/31/25 18:00 Blood Pressure 105/81 07/31/25 18:18 Pulse Oximetry 98 07/31/25 18:18 Oxygen Delivery Me thod Room Air 07/31/25 17:07 MDM - Chest Pain Medical Decision Making Patient presents here with chest pain has been going on for months he has had a recent Shayla scan that was normal patient's care turned over to Dr. Barney pending labs EKG showed no acute abnormalities Care assumed at change of shift. Reviewed Dr. Lopez's notes patient previously had a stress test that was normal. We did orthostatics he does have a slight drop but he is minimally symptomatic. Think some of his symptoms are from his metoprolol. Today he is here to go orthostasis when he first had at times. EKG in the chart does not show any change from previous. We are doing his orthostatics he was trying to demonstrate reproducing symptoms of bending over and standing up quickly which leads me to believe a lot of this is due to his medications and postural change. Will decrease his lisinopril to 10 mg daily and have him follow-up with his primary care doctor. we will start him on pantoprazole. Finally patient should take baby aspirin daily Lab Data 07/31/25 16:32 07/31/25 16:32 Radiology Impressions Chest X-Ray 07/31/25 16:03 IMPRESSION: No acute cardiopulmonary findings. Laboratory Results WBC 6.61 10^3/uL (3.29-11.43) 07/31/25 16:32 RBC 4.38 10^6/uL (3.85-5.65) 07/31/25 16:32 Hgb 13.10 g/dL (11.27-16.99) 07/31/25 16:32 Hct 41.0 % (37-53) 07/31/25 16:32 MCV 93.6 fl (82-101) 07/31/25 16:32 MCH 29.9 pg (27-33) 07/31/25 16:32 MCHC 32.0 g/dL (30-55) 07/31/25 16:32 RDW 13.9 % (12.1-15.1) 07/31/25 16:32 Plt Count 262 10^3/cmm (157-399) 07/31/25 16:32 MPV 8.8 fL (7.4-10.4) 07/31/25 16:32 Neut % (Auto) 55.4 % 07/31/25 16:32 Lymph % (Auto) 31.8 % 07/31/25 16:32 Garvin % (Auto) 5.9 % 07/31/25 16:32 Eos % (Auto) 4.8 % 07/31/25 16:32 Baso % (Auto) 1.5 % 07/31/25 16:32 Neut # (Auto) 3.66 10^3/uL (1.8-7.7) 07/31/25 16:32 Lymph # (Auto) 2.1 10^3/uL (0.8-4.8) 07/31/25 16:32 Garvin # (Auto) 0.4 10^3/uL (0.2-0.9) 07/31/25 16:32 Eos # (Auto) 0.3 10^3/uL (0.0-0.8) 07/31/25 16:32 Baso # (Auto) 0.1 10^3/uL (0.0-0.1) 07/31/25 16:32 Nucleated RBC % (auto) 0 % 07/31/25 16:32 Nucleated RBCs # 0.0 /100WBC 07/31/25 16:32 PT 12.90 SECONDS (12.1-14.9) 07/31/25 16:32 INR 0.91 (0.8-1.2) 07/31/25 16:32 Sodium 139 mmol/L (136-145) 07/31/25 16:32 Potassium 4.5 mmol/L (3.5-5.1) 07/31/25 16:32 Chloride 103 mmol/L (98-107) 07/31/25 16:32 Carbon Dioxide 23 mmol/L (22-29) 07/31/25 16:32 Anion Gap 17.5 (5-19) 07/31/25 16:32 BUN 15 mg/dL (8-23) 07/31/25 16:32 Creatinine 0.9 mg/dL (0.7-1.2) 07/31/25 16:32 GFR Calculation Not Reportable 07/31/25 16:32 Glucose 130 mg/dL (65-115) H 07/31/25 16:32 POC Glucose 162 mg/dL (70-110) H 07/31/25 16:43 Calculated Osmolality 291 mOsm/kg (285-295) 07/31/25 16:32 Calcium 9.2 mg/dL (8.5-10.5) 07/31/25 16:32 Total Bilirubin 0.4 mg/dL (0.15-1.2) 07/31/25 16:32 AST 18 U/L (0-40) 07/31/25 16:32 ALT 18 U/L (0-41) 07/31/25 16:32 Alkaline Phosphatase 64 U/L (40-130) 07/31/25 16:32 Troponin T Baseline 15 ng/L (0-15) 07/31/25 16:32 Total Protein 6.6 g/dL (6.6-8.7) 07/31/25 16:32 Albumin 4.1 g/dL (3.5-5.2) 07/31/25 16:32 Globulin 2.5 g/dL (1.3-4.6) 07/31/25 16:32 Lipase 38 U/L (13-60) 07/31/25 16:32 Discharge Plan Discharge Patient Disposition: Home Clinical Impression: Orthostasis, Atypical chest pain Condition: Stable Prescriptions: New aspirin 81 mg tablet,delayed release (DR/EC) 81 mg PO DAILY Qty: 30 0RF pantoprazole 40 mg tablet,delayed release (DR/EC) 40 mg PO DAILY Qty: 30 0RF Changed lisinopril 20 mg tablet 10 mg .ROUTE DAILY Qty: 90 0RF Rx Instructions: 20 mg daily; No Action dextroamphetamine-amphetamine 25 mg capsule,extended release 24hr PO tamsulosin 0.4 mg capsule 0.4 mg PO DAILY 90 Days Qty: 90 1RF divalproex 250 mg tablet,delayed release (DR/EC) 250 mg PO TID Qty: 90 2RF cholecalciferol (vitamin D3) 1,250 mcg (50,000 unit) capsule 50,000 unit PO .COMPLEX Qty: 4 4RF Rx Instructions: 50,000 units orally .Weekly; metoprolol succinate 25 mg tablet extended release 24 hr 12.5 mg PO DAILY Qty: 90 0RF Rx Instructions: Hold if heart rate less than 60 galantamine 4 mg tablet 4 mg PO DAILY Trelegy Ellipta 100-62.5-25 mcg blister with device See Rx Instructions .ROUTE .COMPLEX Qty: 60 0RF Dose Instruction: INHALE 1 PUFF BY MOUTH DAILY Rx Instructions: INHALE 1 PUFF BY MOUTH DAILY ketoconazole 2 % foam 1 applic topical BID 28 Days Qty: 50 0RF Discharge Orders: Discharge ED (Routine); Ordered 07/31/25 Ordered By: Dayne Barney Referrals: Sujata Tuttle, [facility] [Primary Care Provider, Family Practice] Discharge Diet: Usual diet Discharge Activity: Limit activity as instructed Patient Instructions: Opioid Safety, Pain Management, Patient Portal & Zuleika Instructions Activity Restrictions/Additional Instructions: Thank you for choosing [facility] for your healthcare needs today. It is very important that you follow up as instructed or that you return to the Emergency Department should you have concerns or if your condition changes or worsens in any way. Emergency department visits are focused on emergent conditions, in some cases you may require further evaluation on an outpatient basis. You were seen in the emergency room with complaints of lightheaded and dizziness chest discomfort. Your previous cardiac stress test is negative. You demonstrated that your lightheadedness dizziness is worse when you bend over and suddenly stand up this caused by orthostasis bodies ability to adjust your blood pressure to accommodate for posture is blunted by your blood pressure medications this is not unusual with the medication drawn recommend you decrease your lisinopril to 10 mg daily. Also recommend taking aspirin daily will start you on pantoprazole 40 mg daily and have you follow-up with cardiology. (Please note that included in your discharge packet is information concerning opioid safety and pain management. This information is given to all patients were discharged from the ER regardless of their discharge diagnosis or the medicines they usually take or are prescribed.) Print Language: Macanese Sign Out Sign Out Data: Patient Sign Out occurred on 07/31/25 at 17:06. Patient's care was discussed, and care was transferred from Tony Lopez MD to Dayne Barney DO. 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
[2025-07-31 16:44] LABS: Hematocrit 41.0 % (37-53); Hemoglobin 13.10 g/dL (11.27-16.99); Mean Corpuscular HGB Conc 32.0 g/dL (30-55); Mean Corpuscular Hemoglobin 29.9 pg (27-33); Mean Corpuscular Volume 93.6 fl (82-101); Nucleated Red Blood Cells % 0 %; Platelet Count 262 10^3/cmm (157-399); Red Blood Count 4.38 10^6/uL (3.85-5.65); White Blood Count 6.61 10^3/uL (3.29-11.43)
[2025-07-31 16:57] LABS: INR 0.91 (0.8-1.2); Prothrombin Time 12.90 SECONDS (12.1-14.9)
[2025-07-31 17:02] LABS: Troponin(5th) Baseline 15 ng/L (0-15)
[2025-07-31 17:15] LABS: Alanine Aminotransferase 18 U/L (0-41); Albumin Level 4.1 g/dL (3.5-5.2); Alkaline Phosphatase 64 U/L (40-130); Anion Gap 17.5 (5-19); Aspartate Amino Transferase 18 U/L (0-40); Blood Urea Nitrogen 15 mg/dL (8-23); Calcium 9.2 mg/dL (8.5-10.5); Carbon Dioxide 23 mmol/L (22-29); Chloride 103 mmol/L (98-107); Creatinine Clr Calc Pharmacy 80.2959; Globulin 2.5 g/dL (1.3-4.6); Glucose 130 mg/dL (65-115); Lipase 38 U/L (13-60); Osmolality Calculated 291 mOsm/kg (285-295); Potassium 4.5 mmol/L (3.5-5.1); Sodium 139 mmol/L (136-145); Total Protein 6.6 g/dL (6.6-8.7)
--- NOTE | 2025-07-31 18:18 | ECG_ITS ---
[employer] Test Date: 2025-07-31 Pat Name: Billy Bishop Department: Room: Gender: Male Grant Coordinator: : 1950 Requested By: Tony Lopez Order Number: [id number] Alcala MD: Juan Francisco Barbosa M.D. Measurements Intervals [place] Rate: 70 P: 73 OR: 170 QRS: 64 QRSD: 94 T: 72 QT: 365 QTc: 395 Interpretive Statements SINUS RHYTHM SEPTAL MYOCARDIAL INFARCTION , OF INDETERMINATE AGE [40+ ms Q WAVE IN V1/V2] Compared to ECG 07/31/2025 16:04:56 No significant changes Electronically Signed On 08-01-2025 09:27:44 CDT by Juan Francisco Barbosa M.D. [email or web address]
== END 2025-07-31 18:30 | disposition home or self-care (01) ==
PROVIDERS: Emergency Medicine; Emergency Provider Family Medicine; PCP Registered Nurse
DX: I95.1 Orthostatic hypotension (principal); R07.89 Other chest pain; E78.2 Mixed hyperlipidemia; I10 Essential (primary) hypertension
CPT/HCPCS: 36416; 71045; 80053; 82962; 83690; 84484; 85025; 85610; 93005; 99285; J9999

== ENCOUNTER → 2025-08-12 14:41 | Outpatient (BNVA) | payer MEDICARE, SELFPAY | PROVIDERS: PCP Registered Nurse; Visit Provider Internal Medicine | DX: R07.9 Chest pain, unspecified (principal); I10 Essential (primary) hypertension; E78.2 Mixed hyperlipidemia; G47.33 Obstructive sleep apnea (adult) (pediatric); Z99.89 Dependence on other enabling machines and devices; F90.2 Attention-deficit hyperactivity disorder, combined type; Z79.82 Long term (current) use of aspirin | CPT/HCPCS: 99214 ==